=== PATIENT | female | born 1945 | race Caucasian/White ===

== ENCOUNTER → 2016-03-28 | Outpatient (CLI) | payer MEDICARE, OTHER ==
[2016-03-29 09:28] LABS: HEMATOCRIT 37.2 % (36.0-47.0); HEMOGLOBIN 12.6 g/dL (12.0-15.5); HGB HCT DIFFERENCE 0.6; MEAN CORPUSCULAR VOLUME 91 fl (80-97); RED BLOOD COUNT 4.08 10^6/uL (3.72-5.28); RED CELL DISTRIBUTION WIDTH 14.2 % (11.5-14.0); WHITE BLOOD COUNT 5.2 10^3/uL (4.0-10.5)
[2016-03-29 09:51] LABS: ANION GAP 13 (5-19); BLOOD UREA NITROGEN 19 mg/dL (7-20); CALCIUM 9.7 mg/dL (8.4-10.2); CARBON DIOXIDE 25 mmol/L (22-30); CHLORIDE 108 mmol/L (98-107); CREATININE RESULT 0.55 mg/dL (0.52-1.25); GLUCOSE 99 mg/dL (75-110); POTASSIUM 4.2 mmol/L (3.6-5.0); SODIUM 146.1 mmol/L (137-145)
== END ==
LOC: OD 08:48
PROVIDERS: ATTEND Internal Medicine Cardiovascular Disease
DX: Z79.899 Other long term (current) drug therapy (principal)
CPT/HCPCS: 36415; 80048; 85027

== ENCOUNTER → 2016-05-04 | Outpatient (CLI) | payer MEDICARE, OTHER ==
[2016-05-04 09:01] LABS: HEMATOCRIT 37.5 % (36.0-47.0); HEMOGLOBIN 12.9 g/dL (12.0-15.5); HGB HCT DIFFERENCE 1.2; MEAN CORPUSCULAR HEMOGLOBIN 31.1 pg (27.0-33.4); MEAN CORPUSCULAR HGB CONC 34.3 g/dL (32.0-36.0); MEAN CORPUSCULAR VOLUME 91 fl (80-97); RED BLOOD COUNT 4.14 10^6/uL (3.72-5.28); WHITE BLOOD COUNT 4.6 10^3/uL (4.0-10.5)
[2016-05-04 09:20] LABS: ALANINE AMINOTRANSFERASE 65 U/L (9-52); ALBUMIN 4.5 g/dL (3.5-5.0); ALKALINE PHOSPHATASE 85 U/L (38-126); ASPARTATE AMINO TRANSFERASE 43 U/L (14-36); BILIRUBIN,DIRECT 0.3 mg/dL (0.0-0.4); BILIRUBIN,TOTAL 0.6 mg/dL (0.2-1.3); CHOLESTEROL 220.19 mg/dL (0-200); Direct HDL 57 mg/dL (>40); MAGNESIUM 1.9 mg/dL (1.6-2.3); TOTAL PROTEIN 7.2 g/dL (6.3-8.2); TRIGLYCERIDES 195 mg/dL (<150)
[2016-05-04 09:32] LABS: DIRECT LDL 121 mg/dL (<100)
== END ==
LOC: OD 08:02
PROVIDERS: ATTEND Internal Medicine Cardiovascular Disease
DX: E78.2 Mixed hyperlipidemia (principal); R00.2 Palpitations; R94.5 Abnormal results of liver function studies
CPT/HCPCS: 36415; 80061; 80076; 83735; 84443; 85027

== ENCOUNTER → 2016-07-06 | Outpatient (CLI) | payer MEDICARE, OTHER ==
[2016-07-06 08:29] LABS: ALANINE AMINOTRANSFERASE 53 U/L (9-52); ALBUMIN 4.2 g/dL (3.5-5.0); ALKALINE PHOSPHATASE 93 U/L (38-126); ASPARTATE AMINO TRANSFERASE 27 U/L (14-36); BILIRUBIN,DIRECT 0.2 mg/dL (0.0-0.4); BILIRUBIN,TOTAL 0.4 mg/dL (0.2-1.3); CHOLESTEROL 223.15 mg/dL (0-200); Direct HDL 55 mg/dL (>40); TOTAL PROTEIN 6.6 g/dL (6.3-8.2); TRIGLYCERIDES 157 mg/dL (<150)
[2016-07-06 08:40] LABS: DIRECT LDL 103 mg/dL (<100)
[2016-07-06 08:44] LABS: VLDL CHOLESTEROL 31.4 mg/dL (10-31)
== END ==
LOC: OD 07:07
PROVIDERS: ATTEND Internal Medicine Cardiovascular Disease
DX: E78.2 Mixed hyperlipidemia (principal); R94.5 Abnormal results of liver function studies
CPT/HCPCS: 36415; 80061; 80076

== ENCOUNTER → 2016-08-02 | Outpatient (CLI) | payer MEDICARE, OTHER ==
--- NOTE | 2016-08-02 15:12 | RADIOLOGY REPORT (SQ) ---
EXAM DESCRIPTION: CAROTID DOPPLER COMPLETED DATE/TIME: 08/02/2016 2:05 pm REASON FOR STUDY: STENOSIS I65.29 OCCLUSION AND STENOSIS OF UNSPECIFIED CAROTID ARTERY COMPARISON: None. TECHNIQUE: Grayscale ultrasound, Doppler velocity and spectra, and color Doppler images acquired of the extra-cranial carotid and vertebral arteries. Images stored on PACS. LIMITATIONS: None. FINDINGS: RIGHT CAROTID CCA Velocities: Within normal limits. ICA Velocities Peak systolic 0.65 m/s. End diastolic 0.18 m/s. Proximal ICA/CCA peak systolic ratio 1.2. Spectra normal. No significant plaque. LEFT CAROTID CCA Velocities: Within normal limits. ICA Velocities Peak systolic 0.84 m/s. End diastolic 0.26 m/s. Proximal ICA/CCA peak systolic ratio 2.1. Spectra normal. No significant plaque. VERTEBRAL ARTERIES: Antegrade flow. Normal waveforms. SUBCLAVIAN ARTERIES: Not evaluated OTHER: No other significant finding. IMPRESSION: NO HEMODYNAMICALLY SIGNIFICANT STENOSIS. COMMENT: Quality ID #[id number]: Velocity criteria are extrapolated from the diameter data as defined by t he Society of Radiologists in Ultrasound Consensus Conference. Radiology 2003: 229; 340-346. TECHNICAL DOCUMENTATION: JOB ID: [id number] [employer]- All Rights Reserved
== END ==
LOC: SP 12:28
PROVIDERS: ATTEND Family Medicine
DX: I65.29 Occlusion and stenosis of unspecified carotid artery (principal)
CPT/HCPCS: 93880

== ENCOUNTER → 2016-08-30 | Outpatient (CLI) | payer MEDICARE, OTHER ==
[2016-08-30 09:51] LABS: HEMATOCRIT 37.9 % (36.0-47.0); HEMOGLOBIN 12.5 g/dL (12.0-15.5); HGB HCT DIFFERENCE -0.4; MEAN CORPUSCULAR HEMOGLOBIN 30.3 pg (27.0-33.4); MEAN CORPUSCULAR HGB CONC 32.9 g/dL (32.0-36.0); MEAN CORPUSCULAR VOLUME 92 fl (80-97); RED BLOOD COUNT 4.11 10^6/uL (3.72-5.28); WHITE BLOOD COUNT 4.3 10^3/uL (4.0-10.5)
[2016-08-30 10:05] LABS: ALANINE AMINOTRANSFERASE 42 U/L (9-52); ALBUMIN 4.4 g/dL (3.5-5.0); ALKALINE PHOSPHATASE 68 U/L (38-126); ASPARTATE AMINO TRANSFERASE 21 U/L (14-36); BILIRUBIN,DIRECT 0.3 mg/dL (0.0-0.4); BILIRUBIN,TOTAL 0.5 mg/dL (0.2-1.3); CHOLESTEROL 171.25 mg/dL (0-200); Direct HDL 54 mg/dL (>40); TOTAL PROTEIN 6.7 g/dL (6.3-8.2); TRIGLYCERIDES 112 mg/dL (<150)
[2016-08-30 10:16] LABS: DIRECT LDL 82 mg/dL (<100)
== END ==
LOC: OD 09:06
PROVIDERS: ATTEND Internal Medicine Cardiovascular Disease
DX: R94.5 Abnormal results of liver function studies (principal); E78.2 Mixed hyperlipidemia; D64.9 Anemia, unspecified
CPT/HCPCS: 36415; 80061; 80076; 85027

== ENCOUNTER 2016-09-08 02:49 | Observation (INO) | payer MEDICARE, OTHER ==
[~2016-09-08 02:49] MED LIST: ASPIRIN 81 MG TABLET, CHEWABLE PO ONE
--- NOTE | 2016-09-08 03:18 | RADIOLOGY REPORT (SQ) ---
EXAM DESCRIPTION: CHEST SINGLE VIEW COMPLETED DATE/TIME: 09/08/2016 3:10 am REASON FOR STUDY: chest pain COMPARISON: 11.19.15 EXAM PARAMETERS: NUMBER OF VIEWS: One view. TECHNIQUE: Single frontal radiographic view of the chest acquired. RADIATION DOSE: NA LIMITATIONS: None. FINDINGS: LUNGS AND PLEURA: No opacities, masses or pneumothorax. No pleural effusion. MEDIASTINUM AND HILAR STRUCTURES: No masses. Contour normal. HEART AND VASCULAR STRUCTURES: Heart normal in size. Normal vasculature. BONES: No acute findings. HARDWARE: None in the chest. OTHER: No other significant finding. IMPRESSION: NO ACUTE RADIOGRAPHIC FINDING IN THE CHEST. TECHNICAL DOCUMENTATION: JOB ID: [id number]
[2016-09-08] MEDS ORDERED: MAG HYDROX/AL HYDROX/SIMETH SUSP 30 ML UDCUP PO ONE (03:19)
[2016-09-08] MEDS ORDERED: METOCLOPRAMIDE HCL ORAL SOLN 10 MG/10 ML UDCUP PO ONE (03:19)
[2016-09-08] MEDS ORDERED: LIDOCAINE 2% VISCOUS SOLN 20 ML UDCUP PO ONE (03:19)
[2016-09-08 03:40] LABS: CREATINE KINASE MB 2.34 ng/mL (<4.55)
[2016-09-08 03:43] LABS: ALANINE AMINOTRANSFERASE 119 U/L (9-52); ALBUMIN 4.4 g/dL (3.5-5.0); ALKALINE PHOSPHATASE 80 U/L (38-126); ANION GAP 13 (5-19); ASPARTATE AMINO TRANSFERASE 249 U/L (14-36); BILIRUBIN,DIRECT 0.4 mg/dL (0.0-0.4); BILIRUBIN,TOTAL 0.6 mg/dL (0.2-1.3); BLOOD UREA NITROGEN 14 mg/dL (7-20); CALCIUM 9.3 mg/dL (8.4-10.2); CARBON DIOXIDE 27 mmol/L (22-30); CHLORIDE 106 mmol/L (98-107); CREATINE KINASE 131 U/L (30-135); CREATININE RESULT 0.63 mg/dL (0.52-1.25); GLUCOSE 120 mg/dL (75-110); POTASSIUM 3.2 mmol/L (3.6-5.0); SODIUM 145.7 mmol/L (137-145); TOTAL PROTEIN 7.3 g/dL (6.3-8.2); TROPONIN I < 0.012 ng/mL
[2016-09-08 03:48] LABS: HEMATOCRIT 35.1 % (36.0-47.0); HGB HCT DIFFERENCE 0.9; MEAN CORPUSCULAR HEMOGLOBIN 32.1 pg (27.0-33.4); MEAN CORPUSCULAR HGB CONC 34.3 g/dL (32.0-36.0); MEAN CORPUSCULAR VOLUME 94 fl (80-97); RED BLOOD COUNT 3.75 10^6/uL (3.72-5.28); RED CELL DISTRIBUTION WIDTH 13.8 % (11.5-14.0); WHITE BLOOD COUNT 6.5 10^3/uL (4.0-10.5)
[2016-09-08 03:51] LABS: BASOPHILS % (MANUAL) 0 % (0-2); EOSINOPHILS % (MANUAL) 4 % (0-6); LYMPHOCYTES % (MANUAL) 38 % (13-45); TOTAL CELLS COUNTED 100
[2016-09-08 03:52] LABS: TOXIC GRANULATION SLIGHT
[2016-09-08 03:53] LABS: BURR CELLS SLIGHT; OVALOCYTES SLIGHT; POIKILOCYTOSIS SLIGHT; SCHISTOCYTES SLIGHT
[2016-09-08] MEDS ORDERED: NITROGLYCERIN 0.4 MG/TAB 25 TAB/BOTTLE SL PRN ×2 (04:31→13:47)
--- NOTE | 2016-09-08 04:38 | ER Document Report ---
ED General - General Chief Complaint: Chest Pain Stated Complaint: CHEST PAIN Time Seen by Provider: 09/08/16 03:14 Mode of Arrival: Medic Information source: Patient Notes: 71-year-old female history of hypertension presents with complaints of epigastric abdominal pain pressure sensation associated with shortness of breath and chest pain. Patient denies any fevers or chills Patient notes pain started about 2 hours prior to arrival she went to sleep and the pain woke her up TRAVEL OUTSIDE OF THE [place] IN LAST 30 DAYS: No - HPI Onset: Just prior to arrival Onset/Duration: Sudden Quality of pain: Pressure Severity: Mild Pain Level: 1 Associated symptoms: Chest pain, Shortness of breath Exacerbated by: Denies Relieved by: Denies Similar symptoms previously: No Recently seen / treated by doctor: No - Related Data Allergies/Adverse Reactions: codeine [Codeine] Allergy (Intermediate, Verified 11/19/15 05:14) CP amoxicillin trihydrate [From Augmentin] Allergy (Verified 11/19/15 05:14) naproxen Allergy (Verified 11/19/15 05:14) Potassium Clavulanate * [From Augmentin] Allergy (Verified 11/19/15 05:14) Past Medical History - Social History Smoking Status: Never Smoker Cigarette use (# per day): No Chew tobacco use (# tins/day): No Smoking Education Provided: No Family History: Reviewed & Not Pertinent - Past Medical History Cardiac Medical History: Reports: Hx Hypercholesterolemia, Hx Hypertension Denies: Hx Atrial Fibrillation, Hx Congestive Heart Failure, Hx Coronary Artery Disease, Hx Heart Attack, Hx Peripheral Vascular Disease, Hx Pulmonary Embolism, Hx Heart Murmur Pulmonary Medical History: Reports: Hx Asthma, Hx Pneumonia Denies: Hx Bronchitis, Hx COPD, Hx Respiratory Failure, Hx Sleep Apnea, Hx Tuberculosis Neurological Medical History: Denies: Hx Cerebrovascular Accident, Hx Seizures Endocrine Medical History: Denies: Hx Graves' Disease, Hx Hyperthyroidism, Hx Hypothyroidism Renal/ Medical History: Denies: Hx End Stage Renal Disease, Hx Kidney Stones, Hx Ovarian Cysts, Hx Peritoneal Dialysis, Hx Pelvic Inflammatory Disease Malignancy Medical History: Denies: Hx Breast Cancer, Hx Cervical Cancer, Hx Leukemia, Hx Lung Cancer, Hx Ovarian Cancer GI Medical History: Reports: Hx Gastroesophageal Reflux Disease, Hx Ulcer. Denies: Hx Crohn's Disease, Hx Hiatal Hernia, Hx Irritable Bowel, Hx Liver Failure Musculoskeltal Medical History: Denies Hx Arthritis, Denies Hx Fibromyalgia, Denies Hx Multiple Sclerosis, Denies Hx Muscular Dystrophy Psychiatric Medical History: Denies: Hx Dementia Traumatic Medical History: Denies: Hx Fractures Infectious Medical History: Denies: Hx HIV Past Surgical History: Reports: Hx Abdominal Surgery - benign colon cyst with 4 inch resection, Hx Appendectomy, Hx Cholecystectomy, Hx Hysterectomy, Hx Tonsillectomy, Hx Tubal Ligation. Denies: Hx Bowel Surgery, Hx Section , Hx Colostomy, Hx Coronary Artery Bypass Graft, Hx Gastric Bypass Surgery, Hx Herniorrhaphy, Hx Mastectomy, Hx Pacemaker - Immunizations Hx Diphtheria, Pertussis, Tetanus Vaccination: No Hx Pneumococcal Vaccination: 11/24/11 Review of Systems - Review of Systems Notes: REVIEW OF SYSTEMS: CONSTITUTIONAL : Denies fever, chills, or sweats. Denies recent illness. EENT: Denies eye, ear, throat, or mouth pain or symptoms. Denies nasal or sinus congestion or discharge. Denies throat, tongue, or mouth swelling or difficulty swallowing. CARDIOVASCULAR: admits ot chest pain RESPIRATORY: Denies cough, cold, or chest congestion. Denies shortness of breath, difficulty breathing, or wheezing. GASTROINTESTINAL: admits to epigastric abd pain GENITOURINARY: Denies difficulty urinating, painful urination, burning, frequency, blood in urine, or discharge. FEMALE GENITOURINARY: Denies vaginal bleeding, heavy or abnormal periods, irregular periods. Denies vaginal discharge or odor. MUSCULOSKELETAL: Denies back or neck pain or stiffness. Denies joint pain or swelling. SKIN: Denies rash, lesions or sores. HEMATOLOGIC : Denies easy bruising or bleeding. LYMPHATIC: Denies swollen, enlarged glands. NEUROLOGICAL: Denies confusion or altered mental status. Denies passing out or loss of consciousness. Denies dizziness or lightheadedness. Denies headache. Denies weakness or paralysis or loss of use of either side. Denies problems with gait or speech. Denies sensory loss, numbness, or tingling. Denies seizures. PSYCHIATRIC: Denies anxiety or stress. Denies depression, suicidal ideation, or homicidal ideation. ALL OTHER SYSTEMS REVIEWED AND NEGATIVE. PHYSICAL EXAMINATION: GENERAL: Well-appearing, well-nourished and in no acute distress. HEAD: Atraumatic, normocephalic. EYES: Pupils equal round and reactive to light, extraocular movements intact, conjunctiva are normal. ENT: Nares patent, oropharynx clear without exudates. Moist mucous membranes. NECK: Normal range of motion, supple without lymphadenopathy LUNGS: Breath sounds clear to auscultation bilaterally and equal. No wheezes rales or rhonchi. HEART: Regular rate and rhythm without murmurs ABDOMEN: Soft,mildly tender in the epigastric region Female : deferred Musculoskeletal: Normal range of motion, no pitting or edema. No cyanosis. NEUROLOGICAL: Cranial nerves grossly intact. Normal speech, normal gait. Normal sensory, motor exams PSYCH: Normal mood, normal affect. SKIN: Warm, Dry, normal turgor, no rashes or lesions noted. Dictation was performed using [employer] voice recognition software Physical Exam - Vital signs Vitals: Temp Resp Pulse Ox 97.6 F 14 98 09/08/16 02:57 09/08/16 02:57 09/08/16 02:57 Course - Re-evaluation Re-evalutation: 09/08/16 04:38 Patient had no relief of pain with GI cocktail, ultrasound pending elevated liver enzymes noted patient will be admitted for ACS rule out - Vital Signs Vital signs: Temp Pulse Resp BP Pulse Ox 97.6 F 15 162/72 H 100 09/08/16 02:57 09/08/16 03:35 09/08/16 03:35 09/08/16 03:35 - Laboratory Result Diagrams: 09/08/16 02:56 09/08/16 02:56 Laboratory results interpreted by me: 09/08/16 09/08/16 02:56 02:56 Hct 35.1 L Monocytes % (Manual) 1 L Sodium 145.7 H Potassium 3.2 L Glucose 120 H AST 249 H ALT 119 H - Diagnostic Test Radiology reviewed: Image reviewed, Reports reviewed - EKG Interpretation by Me EKG shows normal: Sinus rhythm, [place], Intervals, QRS Complexes When compared to previous EKG there are: No significant change Discharge - Discharge Clinical Impression: Epigastric pain, Elevated liver enzymes Chest pain Qualifiers: Chest pain type: unspecified Qualified Code(s): R07.9 - Chest pain, unspecified Condition: Stable Disposition: ADMITTED OBSERVATION Admitting Provider: [facility] Admitted: Telemetry
[2016-09-08] MEDS ORDERED: NORMAL SALINE 1000 ML 1,000 ML IV PRN (06:17)
[2016-09-08] MEDS ORDERED: ACETAMINOPHEN 325 MG TABLET PO PRN (06:17)
--- NOTE | 2016-09-08 07:09 | RADIOLOGY REPORT (SQ) ---
EXAM DESCRIPTION: U/S ABDOMEN LIMITED W/O DOP COMPLETED DATE/TIME: 09/08/2016 6:44 am REASON FOR STUDY: epigastric pain R07.9 CHEST PAIN, UNSPECIFIED R10.9 UNSPECIFIED ABDOMINAL PAIN COMPARISON: None. TECHNIQUE: Dynamic and static grayscale images acquired of the abdomen and recorded on PACS. Additio nal selected color Doppler and spectral images recorded. LIMITATIONS: None. FINDINGS: PANCREAS: No masses. Pancreatic duct diameter measures 0.3 cm, chronic compared to the wi th prior CT from November 2011. LIVER: 2.0 cm hypoechoic right hepatic lesion, likely benign due to a hepatic cyst or hemangioma as c orrelated with prior CT, 11/15/2011 an without suspicious interval change. LIVER VASCULATURE: Normal directional flow of the main portal vein and hepatic veins. GALLBLADDER: Surgically absent. ULTRASOUND-DETECTED HENRY'S SIGN: Negative. INTRAHEPATIC DUCTS AND COMMON DUCT: 1.3 cm diameter CBD and intrahepatic ducts normal caliber. No dominic ling defects. INFERIOR VENA CAVA: Normal flow. AORTA: Partially obscured, possible abdominal aortic aneurysm measures 3.5 x 3.3 cm, new compared wit h prior available CT from November 2011. RIGHT KIDNEY: Normal size. Normal echogenicity. No solid or suspicious masses. No hydronephrosis. No calcifications. PERITONEAL AND RIGHT PLEURAL SPACE: No ascites or effusions. OTHER: No other significant findings. IMPRESSION: 1. Possible 3.5 cm abdominal aortic aneurysm. 2. Otherwise, stable including 1.3 cm d iameter common duct dilation, with prior cholecystectomy. TECHNICAL DOCUMENTATION: JOB ID: [id number] [employer]- All Rights Reserved
[2016-09-08] MEDS ORDERED: POTASSIUM CHLORIDE 10 MEQ TABLET.SA PO ONE (07:52)
--- NOTE | 2016-09-08 08:57 | PDOC H&P ---
History of Present Illness Admission Date/PCP: 09/08/16 06:17 FALGUNI PORTILLO MD Patient complains of: Chest pain History of Present Illness: FAITH METZGER is a 71 year old female There is a 71-year-old female with a history of the hypertensions and hyperlipidemia and other multiple medical problem came to the emergency department with a complaint for chest pain started last nightWith the heaviness in the chest and patients for some diaphoretic in patients tried to take some aspirin and weight but still the pain is not getting relief in patients call the EMSAnd brought to the emergency department and the patient was given nitroglycerin and according to the patient's currently patient's chest pain-free . pt see a Dr. Couch Since last couple of months and patient have a stress test was done and according to the patient was all stable and Dr. couch on aspirin In the initial ER workup patient's LFT was elevated was normal last monthAnd patient ultrasound of the abdomen was done which is negative for any acute finding except patient have a some abdominal aortic aneurysm which is a 3.5 cm size but patient's currently denied any abdominal pain Patient's currently started the Crestor by Dr. couch and I think they may contribute to elevated LFT which patient have a same problem when patient was on Zocor in the past and increase the LFT and reduce the dose of the Zocor Past Medical History Cardiac Medical History: Reports: Coronary Artery Disease, Hyperlipidema, Hypertension Denies: Atrial Fibrillation, Congestive Heart Failure, Myocardial Infarction , Peripheral Vascular Disease, Pulmonary Embolism, Heart Murmur Pulmonary Medical History: Reports: Asthma, Pneumonia Denies: Bronchitis, Chronic Obstructive Pulmonary Disease (COPD), Respiratory Failure, Sleep Apnea, Tuberculosis Neurological Medical History: Denies: Seizures Endocrine Medical History: Denies: Hyperthyroidism, Hypothyroidism Renal/ Medical History: Denies: End Stage Renal Disease Malignancy Medical History: Denies: Breast Cancer, Cervical Cancer, Leukemia, Lung Cancer, Ovarian Cancer GI Medical History: Reports: Gastroesophageal Reflux Disease Denies: Crohn's Disease, Hiatal Hernia Musculoskeltal Medical History: Denies: Arthritis, Fibromyalgia Psychiatric Medical History: Reports: General Anxiety Disorder Denies: Dementia Hematology: Reports: Anemia Denies: Hemophilia, Sickle Cell Disease Infectious Medical History: Denies: HIV Past Surgical History Past Surgical History: Reports: Appendectomy, Cholecystectomy, Hysterectomy, Tonsillectomy, Tubal Ligation Denies: Amputation, Section, Colostomy, Coronary Artery Bypass Graft , Gastric Bypass Surgery, Herniorrhaphy, Mastectomy, Pacemaker Social History Lives with: Family Smoking Status: Never Smoker Hx Recreational Drug Use: No Hx Prescription Drug Abuse: No Family History Family History: Reviewed & Not Pertinent Parental Family History Reviewed: Yes Children Family History Reviewed: Yes Sibling(s) Family History Reviewed.: Yes Medication/Allergy Home Medications: Ascorbic Acid [Vitamin C 500 mg Tablet] 500 mg PO DAILY 09/08/16 Calcium Carbonate/Vitamin D3 [Calcium 500-Vit D3 600 Caplet] 1 each PO DAILY Esomeprazole Magnesium [Nexium] 40 mg PO DAILY 09/08/16 Glipizide [Glipizide ER] 2.5 mg PO DAILY 09/08/16 Glucosamine Sulfate 2Kcl [Glucosamine] 1,500 mg PO Q12 09/08/16 Ibandronate Sodium [Boniva] 150 mg PO Q30D 09/08/16 Multivitamin [Multivitamins] 1 each PO DAILY 09/08/16 Ropinirole HCl [Requip] 1 mg PO DAILY 09/08/16 Simvastatin 40 mg PO DAILY 09/08/16 Telmisartan [Micardis 40 mg Tablet] 40 mg PO DAILY 09/08/16 Allergies/Adverse Reactions: codeine [Codeine] Allergy (Intermediate, Verified 11/19/15 05:14) CP amoxicillin trihydrate [From Augmentin] Allergy (Verified 11/19/15 05:14) naproxen Allergy (Verified 11/19/15 05:14) Potassium Clavulanate * [From Augmentin] Allergy (Verified 11/19/15 05:14) Review of Systems Constitutional: ABSENT: chills, fever(s), headache(s), weight gain, weight loss Eyes: ABSENT: visual disturbances Ears: ABSENT: hearing changes Cardiovascular: PRESENT: chest pain. ABSENT: dyspnea on exertion, edema, orthropnea, palpitations Respiratory: ABSENT: cough, hemoptysis Gastrointestinal: ABSENT: abdominal pain, constipation, diarrhea, hematemesis, hematochezia, nausea, vomiting Genitourinary: ABSENT: dysuria, hematuria Musculoskeletal: ABSENT: joint swelling Integumentary: ABSENT: rash, wounds Neurological: ABSENT: abnormal gait, abnormal speech, confusion, dizziness, focal weakness, syncope Psychiatric: ABSENT: anxiety, depression, homidical ideation, suicidal ideation Endocrine: ABSENT: cold intolerance, heat intolerance, menstrual abnormalities, polydipsia, polyuria Hematologic/Lymphatic: ABSENT: easy bleeding, easy bruising, lymphadenopathy Physical Exam Vital Signs: Temp Pulse Resp BP Pulse Ox 98.2 F 90 15 152/78 H 100 09/08/16 06:21 09/08/16 06:21 09/08/16 08:02 09/08/16 08:02 09/08/16 08:02 General appearance: PRESENT: no acute distress, well-developed, well-nourished Head exam: PRESENT: atraumatic, normocephalic Eye exam: PRESENT: conjunctiva pink, EOMI, PERRLA. ABSENT: scleral icterus Ear exam: PRESENT: normal external ear exam Mouth exam: PRESENT: moist, tongue midline Neck exam: PRESENT: full ROM. ABSENT: carotid bruit, JVD, lymphadenopathy, thyromegaly Respiratory exam: PRESENT: clear to auscultation priyanka Cardiovascular exam: PRESENT: RRR. ABSENT: diastolic murmur, rubs, systolic murmur Pulses: PRESENT: normal dorsalis pedis pul, +2 pedal pulses bilateral Vascular exam: PRESENT: normal capillary refill GI/Abdominal exam: PRESENT: normal bowel sounds, soft. ABSENT: distended, guarding, mass, organolmegaly, rebound, tenderness Rectal exam: PRESENT: deferred Neurological exam: PRESENT: alert, awake, oriented to person, oriented to place , oriented to time, oriented to situation, CN II-XII grossly intact. ABSENT: motor sensory deficit Psychiatric exam: PRESENT: appropriate affect, normal mood. ABSENT: homicidal ideation, suicidal ideation Skin exam: PRESENT: dry, intact, warm. ABSENT: cyanosis, rash Results Impressions: Chest X-Ray 09/08/16 02:49 IMPRESSION: NO ACUTE RADIOGRAPHIC FINDING IN THE CHEST. Abdomen Ultrasound 09/08/16 04:34 IMPRESSION: 1. Possible 3.5 cm abdominal aortic aneurysm. 2. Otherwise, stable including 1.3 cm diameter common duct dilation, with prior cholecystectomy. Assessment & Plan - Diagnosis (1) Chest pain Qualifiers: Chest pain type: unspecified Qualified Code(s): R07.9 - Chest pain, unspecified Is this a current diagnosis for this admission?: YesPlan: Will rule out the acute coronary syndrome and rule out other etiology and consult cardiology for further evaluations while patient recently have any stress test done (2) Abdominal aortic aneurysm Qualifiers: Presence of rupture: without rupture Qualified Code(s): I71.4 - Abdominal aortic aneurysm, without rupture Is this a current diagnosis for this admission?: YesPlan: Currently all stable and likely causing any issue at this point needs to further follow-up as outpatients to vascular surgery (3) Hypertension Qualifiers: Hypertension type: essential hypertension Qualified Code(s): I10 - Essential (primary) hypertension Is this a current diagnosis for this admission?: YesPlan: Continues to current medication (4) Hyperlipidemia Qualifiers: Hyperlipidemia type: unspecified Qualified Code(s): E78.5 - Hyperlipidemia, unspecified Is this a current diagnosis for this admission?: YesPlan: Patient is currently on Crestor (5) Coronary artery disease Qualifiers: Coronary Disease-Associated Artery/Lesion type: unspecified vessel or lesion type Is this a current diagnosis for this admission?: YesPlan: Follow with the cardiology (6) Anxiety disorder Qualifiers: Anxiety disorder type: unspecified anxiety disorder Qualified Code(s ): F41.9 - Anxiety disorder, unspecified Is this a current diagnosis for this admission?: YesPlan: Currently all stable (7) Elevated liver enzymes Is this a current diagnosis for this admission?: YesPlan: Most likely related to the statin (8) Epigastric abdominal pain Is this a current diagnosis for this admission?: YesPlan: Possible underlying gastritis will get the CT abdomen and pelvis - Time Time Spent: 30 to 50 Minutes Medications reviewed and adjusted accordingly: Yes Anticipated discharge: Home Within: Other - Inpatient Certification Medical Necessity: Need Close Monitoring Due to Risk of Patient Decompensation, Need For IV Fluids 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 His cast with the patient and the daughter in the emergency department and discuss about the all the test results and the follow-up plan
[2016-09-08] MEDS ORDERED: INSULIN LISPRO 100 UNIT/ML 3 ML VIAL SUBCUT PRN (08:59)
[2016-09-08] MEDS ORDERED: GLUCAGON,HUMAN RECOMB 1 MG INJ IM PRN (08:59)
[2016-09-08] MEDS ORDERED: DEXTROSE 40% GEL 15 GM TUBE PO PRN ×2 (08:59)
[2016-09-08] MEDS ORDERED: DEXTROSE 50%-WATER 25 GM/50 ML DISP.SYRIN IV PRN ×2 (08:59)
--- NOTE | 2016-09-08 09:03 | RADIOLOGY REPORT (SQ) ---
EXAM DESCRIPTION: CTA CHEST COMPLETED DATE/TIME: 09/08/2016 8:49 am REASON FOR STUDY: chest pain R07.9 CHEST PAIN, UNSPECIFIED R10.9 UNSPECIFIED ABDOMINAL PAIN COMPARISON: None. TECHNIQUE: CT scan of the chest performed using helical scanning technique with dynamic intravenous contrast injection. Images reviewed with lung, soft tissue and bone windows. Reconstructed coronal and sagittal MPR images reviewed. Additional 3 dimensional post-processing performed to develop Maximal Intensity Projection images (VT P). All images stored on PACS. All CT scanners at this facility use dose modulation, iterative reconstruction, and/or weight based d osing when appropriate to reduce radiation dose to as low as reasonably achievable (ALARA). [facility]: Dose Right [facility]: CareDose [facility]: Dose Right [facility]: Teradose 4D [facility]: Ziftit CONTRAST TYPE AND DOSE: contrast/concentration: Isovue 370.00 mg/ml; Total Contrast Delivered: 62.0 ml; Total Saline Delivered: 100.1 ml RENAL FUNCTION: Creatinine 0.6 RADIATION DOSE: Up-to-date CT equipment and radiation dose reduction techniques were employed. CTDIv ol: 18.2 - 32.8 mGy. DLP: 3451 mGy-cm. . LIMITATIONS: None. FINDINGS: LUNGS AND PLEURA: No masses, infiltrates, pneumothorax. No pleural effusions, calcificati ons. AORTA AND GREAT VESSELS: No aneurysm or dissection. HEART: No pericardial effusion. PULMONARY ARTERIES: No emboli visualized in the main pulmonary arteries or the segmental branches. HILAR AND MEDIASTINAL STRUCTURES: No identified masses or abnormal nodes. HARDWARE: None in the chest. UPPER ABDOMEN: See separate report of the CT of the abdomen. THYROID AND OTHER SOFT TISSUES: No masses. No adenopathy. BONES: No acute or significant finding. 3D MIPS: Confirm above findings. OTHER: No other significant finding. IMPRESSION: No evidence of pulmonary embolus. TECHNICAL DOCUMENTATION: JOB ID: [id number] Quality ID # [id number]: Final reports with documentation of one or more dose reduction techniques (e.g., Au tomated exposure control, adjustment of the mA and/or kV according to patient size, use of iterative reconstruction technique) 2010 [employer]- All Rights Reserved
--- NOTE | 2016-09-08 09:18 | RADIOLOGY REPORT (SQ) ---
EXAM DESCRIPTION: CT ABD/PELVIS WITH IV ONLY COMPLETED DATE/TIME: 09/08/2016 8:49 am REASON FOR STUDY: abd pain R07.9 CHEST PAIN, UNSPECIFIED R10.9 UNSPECIFIED ABDOMINAL PAIN COMPARISON: 11/15/2011 TECHNIQUE: CT scan of the abdomen and pelvis performed using helical scanning technique with dynamic intravenous contrast injection. No oral contrast. Images reviewed with lung, soft tissue, and bone windows. Reconstructed coronal and sagittal MPR images reviewed. Delayed images for evaluation of the urinary system also acquired. All images stored on PACS. All CT scanners at this facility use dose modulation, iterative reconstruction, and/or weight based d osing when appropriate to reduce radiation dose to as low as reasonably achievable (ALARA). [facility]: Dose Right [facility]: CareDose [facility]: Dose Right [facility]: Teradose 4D [facility]: Smart Fixit Express CONTRAST TYPE AND DOSE: See separate chest CT of the same date. RENAL FUNCTION: See chest CT report of the same date. RADIATION DOSE: . LIMITATIONS: None. FINDINGS: LOWER CHEST: See separate report of the CT of the chest. LIVER: Benign cyst. Chronic ductal dilatation status post cholecystectomy. SPLEEN: Normal size. No focal lesions. PANCREAS: No masses. No significant calcifications. No adjacent inflammation or peripancreatic fluid collections. Pancreatic duct not dilated. GALLBLADDER: Surgically absent. ADRENAL GLANDS: No significant masses or asymmetry. RIGHT KIDNEY AND URETER: No solid masses. No significant calcifications. No hydronephrosis or hyd roureter. LEFT KIDNEY AND URETER: Cyst upper pole. No solid masses. No significant calcifications. No hydr onephrosis or hydroureter. AORTA AND VESSELS: No aneurysm. No dissection. Renal arteries, SMA, celiac without stenosis. RETROPERITONEUM: No retroperitoneal adenopathy, hemorrhage or masses. BOWEL AND PERITONEAL CAVITY: No masses or inflammatory changes. No free fluid or peritoneal masses. APPENDIX: Surgically absent. PELVIS: No mass. No free fluid. Normal bladder. ABDOMINAL WALL: No masses. No hernias. BONES: No acute findings. OTHER: No other significant finding. IMPRESSION: No acute findings in the abdomen or pelvis. TECHNICAL DOCUMENTATION: JOB ID: [id number] Quality ID # [id number]: Final reports with documentation of one or more dose reduction techniques (e.g., Au tomated exposure control, adjustment of the mA and/or kV according to patient size, use of iterative reconstruction technique) 2010 [employer]- All Rights Reserved
[2016-09-08] MEDS: ENOXAPARIN SODIUM INJ 40 MG/0.4 ML DISP.SYRIN SUBCUT SCH (09:41)
[2016-09-08] MEDS: ASCORBIC ACID 500 MG TABLET PO SCH (09:42)
[2016-09-08] MEDS: LANSOPRAZOLE 30 MG TAB.RAP.DR PO SCH (09:42)
[2016-09-08] MEDS: MULTIVITAMIN TABLET PO SCH (09:43)
[2016-09-08] MEDS: LOSARTAN POTASSIUM 50 MG TABLET PO SCH (09:44)
[2016-09-08] MEDS: CALCIUM CARBONATE 250 MG/VITAMIN D3 125 UNIT TABLET PO SCH (09:45)
[2016-09-08] MEDS ORDERED: CALCIUM CARBONATE PO SCH (10:00)
[2016-09-08] MEDS ORDERED: VITAMIN D3 PO SCH (10:00)
[2016-09-08] MEDS ORDERED: ROPINIROLE HCL 1 MG TABLET PO SCH (10:00)
[2016-09-08] MEDS ORDERED: (PENDING PHARMACY ID) (Ropinirole Hcl [Requip] 1 MG) PO SCH (10:00)
[2016-09-08] MEDS ORDERED: [UNRECOGNIZED DRUG - OTHER] PO SCH (10:00)
[2016-09-08] MEDS ORDERED: GLUCOSAMINE SULFATE 1500 MG PO SCH (10:00)
[2016-09-08] MEDS ORDERED: (PENDING PHARMACY ID) (Telmisartan [Micardis 40 Mg Tablet] 40 MG) PO SCH (10:00)
[2016-09-08] MEDS: GLIPIZIDE XL 2.5 MG TAB.ER.24 PO SCH (11:10)
[2016-09-08 12:02] LABS: CREATINE KINASE MB 1.81 ng/mL (<4.55)
[2016-09-08 12:07] LABS: TROPONIN I < 0.012 ng/mL
--- NOTE | 2016-09-08 17:15 | EKG REPORT ---
SEVERITY:- ABNORMAL ECG - SINUS RHYTHM NONSPECIFIC T ABNORMALITIES, LATERAL LEADS : Confirmed by: Gardenia Joyce MD 08-Sep-2016 17:14:47
[2016-09-08 17:44] LABS: CREATINE KINASE MB 1.73 ng/mL (<4.55)
[2016-09-08 17:45] LABS: TROPONIN I < 0.012 ng/mL
[2016-09-08] MEDS: ROPINIROLE HCL 1 MG TABLET PO SCH (20:03)
[2016-09-08 23:18] LABS: CREATINE KINASE MB 1.09 ng/mL (<4.55)
[2016-09-08 23:22] LABS: TROPONIN I < 0.012 ng/mL
[2016-09-09 06:13] LABS: ABSOLUTE EOSINOPHILS # (AUTO) 0.1 10^3/uL (0.0-0.6); ABSOLUTE LYMPHOCYTES (AUTO) 1.5 10^3/uL (0.5-4.7); ABSOLUTE MONOCYTES (AUTO) 0.2 10^3/uL (0.1-1.4); ABSOLUTE NEUT (AUTO) 1.6 10^3/uL (1.7-8.2); BASOPHILS % (AUTO) 0.2 % (0-2); EOSINOPHILS % (AUTO) 2.9 % (0-6); HEMATOCRIT 33.8 % (36.0-47.0); HEMOGLOBIN 11.6 g/dL (12.0-15.5); LYMPHOCYTES % (AUTO) 43.5 % (13-45); MEAN CORPUSCULAR HEMOGLOBIN 31.5 pg (27.0-33.4); MEAN CORPUSCULAR HGB CONC 34.5 g/dL (32.0-36.0); MEAN CORPUSCULAR VOLUME 91 fl (80-97); MONOCYTES % (AUTO) 6.9 % (3-13); SEGMENTED NEUTROPHILS % (AUTO) 46.5 % (42-78); WHITE BLOOD COUNT 3.5 10^3/uL (4.0-10.5)
[2016-09-09 06:31] LABS: ALANINE AMINOTRANSFERASE 337 U/L (9-52); ALBUMIN 4.1 g/dL (3.5-5.0); ALKALINE PHOSPHATASE 93 U/L (38-126); ANION GAP 11 (5-19); ASPARTATE AMINO TRANSFERASE 204 U/L (14-36); BILIRUBIN,DIRECT 0.3 mg/dL (0.0-0.4); BILIRUBIN,TOTAL 0.4 mg/dL (0.2-1.3); BLOOD UREA NITROGEN 17 mg/dL (7-20); CALCIUM 9.7 mg/dL (8.4-10.2); CARBON DIOXIDE 27 mmol/L (22-30); CHLORIDE 104 mmol/L (98-107); CREATININE RESULT 0.66 mg/dL (0.52-1.25); GLUCOSE 106 mg/dL (75-110); POTASSIUM 4.2 mmol/L (3.6-5.0); SODIUM 141.5 mmol/L (137-145); TOTAL PROTEIN 6.7 g/dL (6.3-8.2)
[2016-09-09] MEDS: LANSOPRAZOLE 30 MG TAB.RAP.DR PO SCH ×2 (08:43→10:05)
[2016-09-09 08:45] LABS: CREATINE KINASE MB 1.29 ng/mL (<4.55)
[2016-09-09 08:50] LABS: TROPONIN I < 0.012 ng/mL
[2016-09-09] MEDS: ENOXAPARIN SODIUM INJ 40 MG/0.4 ML DISP.SYRIN SUBCUT SCH (10:03)
[2016-09-09] MEDS: MULTIVITAMIN TABLET PO SCH (10:04)
[2016-09-09] MEDS: LOSARTAN POTASSIUM 50 MG TABLET PO SCH (10:04)
[2016-09-09] MEDS: CALCIUM CARBONATE 250 MG/VITAMIN D3 125 UNIT TABLET PO SCH (10:04)
[2016-09-09] MEDS: ASCORBIC ACID 500 MG TABLET PO SCH (10:04)
[2016-09-09] MEDS: GLIPIZIDE XL 2.5 MG TAB.ER.24 PO SCH (10:05)
--- NOTE | 2016-09-09 10:49 | PDOC PROGRESS REPORT ---
Subjective Progress Note for:: 09/09/16 Subjective:: Patient is currently doing much better. Patient's denied any chest pain denied any shortness of the breath.Patient also walking the hallway and in no change and denied any other complaints Patient also denied any epigastric pain or no nausea no vomiting Very extensive discussions with the Dr. Couch and he suggest the patient's when he reviewed the chart on [facility] and he does not think it is coming from the cardiac and he think up patients can discharge from the cardiac standpoint if he does not have a no chest painAnd follow outpatient Patient's LFTs definitely elevated and the patient does have a common bile duct dilatations as per discussed with the Dr. Romero he will further evaluate the patient's while the patient LFT was suddenly increased within the last 2 weeks Physical Exam Vital Signs: Temp Pulse Resp BP Pulse Ox 97.6 F 78 19 154/76 H 98 09/09/16 07:24 09/09/16 07:24 09/09/16 07:24 09/09/16 07:24 09/09/16 07:24 Intake & Output 09/08/16 09/09/16 09/10/16 06:59 06:59 06:59 Intake Total 1053 Balance 1053 Weight 72.6 kg General appearance: PRESENT: no acute distress, well-developed, well-nourished Head exam: PRESENT: atraumatic, normocephalic Eye exam: PRESENT: conjunctiva pink, EOMI, PERRLA. ABSENT: scleral icterus Ear exam: PRESENT: normal external ear exam Mouth exam: PRESENT: moist, tongue midline Neck exam: PRESENT: full ROM. ABSENT: carotid bruit, JVD, lymphadenopathy, thyromegaly Respiratory exam: PRESENT: clear to auscultation priyanka Cardiovascular exam: PRESENT: RRR. ABSENT: diastolic murmur, rubs, systolic murmur Pulses: PRESENT: normal dorsalis pedis pul, +2 pedal pulses bilateral Vascular exam: PRESENT: normal capillary refill GI/Abdominal exam: PRESENT: normal bowel sounds, soft. ABSENT: distended, guarding, mass, organolmegaly, rebound, tenderness Rectal exam: PRESENT: deferred Neurological exam: PRESENT: alert, awake, oriented to person, oriented to place , oriented to time, oriented to situation, CN II-XII grossly intact. ABSENT: motor sensory deficit Psychiatric exam: PRESENT: appropriate affect, normal mood. ABSENT: homicidal ideation, suicidal ideation Skin exam: PRESENT: dry, intact, warm. ABSENT: cyanosis, rash Results Laboratory Results: 09/09/16 05:14 09/09/16 05:14 09/09/16 09/09/16 09/09/16 05:14 05:14 08:12 WBC 3.5 L RBC 3.70 L Hgb 11.6 L Hct 33.8 L MCV 91 MCH 31.5 MCHC 34.5 RDW 14.0 Plt Count 128 L Seg Neutrophils % 46.5 Lymphocytes % 43.5 Monocytes % 6.9 Eosinophils % 2.9 Basophils % 0.2 Absolute Neutrophils 1.6 L Absolute Lymphocytes 1.5 Absolute Monocytes 0.2 Absolute Eosinophils 0.1 Absolute Basophils 0.0 Sodium 141.5 Potassium 4.2 Chloride 104 Carbon Dioxide 27 Anion Gap 11 BUN 17 Creatinine 0.66 Est GFR ( Amer) > 60 Est GFR (Non-Af Amer) > 60 Glucose 106 Calcium 9.7 Total Bilirubin 0.4 AST 204 H ALT 337 H Alkaline Phosphatase 93 Total Protein 6.7 Albumin 4.1 Lipase 123.1 09/08/16 09/08/16 09/08/16 17:15 17:15 22:45 Creatine Kinase 97 84 CK-MB (CK-2) 1.73 Troponin I < 0.012 09/08/16 09/09/16 09/09/16 22:45 08:12 08:12 Creatine Kinase 68 CK-MB (CK-2) 1.09 1.29 Troponin I < 0.012 < 0.012 Impressions: Abdomen/Pelvis CT 09/08/16 00:00 IMPRESSION: No acute findings in the abdomen or pelvis. Chest/Abdomen CTA 09/08/16 00:00 IMPRESSION: No evidence of pulmonary embolus. Chest X-Ray 09/08/16 02:49 IMPRESSION: NO ACUTE RADIOGRAPHIC FINDING IN THE CHEST. Abdomen Ultrasound 09/08/16 04:34 IMPRESSION: 1. Possible 3.5 cm abdominal aortic aneurysm. 2. Otherwise, stable including 1.3 cm diameter common duct dilation, with prior cholecystectomy. Assessment & Plan - Diagnosis (1) Chest pain Qualifiers: Chest pain type: unspecified Qualified Code(s): R07.9 - Chest pain, unspecified Is this a current diagnosis for this admission?: YesPlan: All cardiac workup is negative patients with external discussed with the cardiology Dr. Couch and he suggest that the patient's call cardiac workup negative and patient does not have any chest pain patients follow outpatient. He should have a recently a stress test done in his office with so some mild reversible ischemia but he does not think the patient's need any further workup if the patient does not have any chest pain Patient's currently denied any chest pain any shortness of the breath (2) Abdominal aortic aneurysm Qualifiers: Presence of rupture: without rupture Qualified Code(s): I71.4 - Abdominal aortic aneurysm, without rupture Is this a current diagnosis for this admission?: YesPlan: Patient ultrasound so the aneurysm but the CT of the abdomen and pelvis did not show any aneurysm (3) Hypertension Qualifiers: Hypertension type: essential hypertension Qualified Code(s): I10 - Essential (primary) hypertension Is this a current diagnosis for this admission?: YesPlan: Continues to current medication (4) Hyperlipidemia Qualifiers: Hyperlipidemia type: unspecified Qualified Code(s): E78.5 - Hyperlipidemia, unspecified Is this a current diagnosis for this admission?: YesPlan: Patient is currently on Crestor (5) Coronary artery disease Qualifiers: Coronary Disease-Associated Artery/Lesion type: unspecified vessel or lesion type Is this a current diagnosis for this admission?: YesPlan: If the patient have any further chest pain this to be a cardiac cath but otherwise patient does not have any acute coronary syndrome as per discussed with Dr. couch (6) Anxiety disorder Qualifiers: Anxiety disorder type: unspecified anxiety disorder Qualified Code(s ): F41.9 - Anxiety disorder, unspecified Is this a current diagnosis for this admission?: YesPlan: Currently all stable (7) Elevated liver enzymes Is this a current diagnosis for this admission?: YesPlan: With this elevated liver enzyme and a history of the stating side effect but with a slight increase within the last 2 weeks with elevated diameter of the common bile duct were discussed with the GI Dr. Romero any further evaluate the patient's probably need a ERCP while patient have a history of the lap choleTo rule out any retained bile duct stone (8) Epigastric abdominal pain Is this a current diagnosis for this admission?: YesPlan: Will ask the GI for further evaluations (9) Type 2 diabetes mellitus Qualifiers: Diabetes mellitus complication status: with unspecified complications Is this a current diagnosis for this admission?: YesPlan: Continues a sliding scale - Time Time Spent with patient: 15-24 minutes Medications reviewed and adjusted accordingly: Yes Anticipated discharge: Home Within: within 24 hours - Inpatient Certification Medical Necessity: Need Close Monitoring Due to Risk of Patient Decompensation Post Hospital Care: D/C Side Panel Hanger Documentation - Plan Summary Plan Summary: Patient is currently stable with a cardiac standpoint as per discussed with the . khoa Will wait for the GI evaluations
--- NOTE | 2016-09-09 12:12 | EKG REPORT ---
SEVERITY:- NORMAL ECG - SINUS RHYTHM : Confirmed by: Gardenia Joyce MD 09-Sep-2016 12:11:38
--- NOTE | 2016-09-09 12:12 | EKG REPORT ---
SEVERITY:- NORMAL ECG - SINUS RHYTHM : Confirmed by: Gardenia Joyce MD 09-Sep-2016 12:11:34
--- NOTE | 2016-09-09 17:11 | PDOC CONSULTATION ---
Consultation Consult Date: 09/09/16 History of Present Illness Admission Date/PCP: 09/08/16 13:38 FALGUNI PORTILLO MD History of Present Illness: This is a 71-year-old patient was admitted to the emergency room with sudden onset epigastric pain. She went to bed with no problems but woke up during the night with epigastric pain radiating to the back. The pain was associated with nausea and dizziness but no vomiting. The pain lasted for many hours but was gone by and she has been doing reasonably well since admission. She is tolerating a cardiac diet. On admission her transaminases were elevated at AST 249 and ALT 119 with a normal bilirubin and lipase of 123. Her LFTs were normal on 08/30/2016. She had an abdominal ultrasound that showed a dilated. 1.3 cm common bile duct status post cholecystectomy. She has a chronic history of mild dilation of intrahepatic ducts as far back as 2011 on a CAT scan. She had her gallbladder removed in 1978. Past Medical History Cardiac Medical History: Reports: Coronary Artery Disease, Hyperlipidema, Hypertension Denies: Atrial Fibrillation, Congestive Heart Failure, Myocardial Infarction , Peripheral Vascular Disease, Pulmonary Embolism, Heart Murmur Pulmonary Medical History: Reports: Asthma, Pneumonia Denies: Bronchitis, Chronic Obstructive Pulmonary Disease (COPD), Respiratory Failure, Sleep Apnea, Tuberculosis Neurological Medical History: Denies: Seizures Endocrine Medical History: Denies: Hyperthyroidism, Hypothyroidism Renal/ Medical History: Denies: End Stage Renal Disease Malignancy Medical History: Denies: Breast Cancer, Cervical Cancer, Leukemia, Lung Cancer, Ovarian Cancer GI Medical History: Reports: Gastroesophageal Reflux Disease Denies: Crohn's Disease, Hiatal Hernia Musculoskeltal Medical History: Denies: Arthritis, Fibromyalgia Psychiatric Medical History: Reports: Depression, General Anxiety Disorder Denies: Dementia Hematology: Reports: Anemia Denies: Hemophilia, Sickle Cell Disease Infectious Medical History: Denies: HIV Past Surgical History Past Surgical History: Reports: Appendectomy, Cholecystectomy, Hysterectomy, Tonsillectomy, Tubal Ligation Denies: Amputation, Section, Colostomy, Coronary Artery Bypass Graft , Gastric Bypass Surgery, Herniorrhaphy, Mastectomy, Pacemaker Social History Lives with: Family Smoking Status: Never Smoker Frequency of Alcohol Use: None Hx Recreational Drug Use: No Drugs: None Hx Prescription Drug Abuse: No Family History Family History: Reviewed & Not Pertinent Parental Family History Reviewed: No Children Family History Reviewed: NA Sibling(s) Family History Reviewed.: NA Medication/Allergy Home Medications: Ascorbic Acid [Vitamin C 500 mg Tablet] 500 mg PO DAILY 09/08/16 Calcium Carbonate/Vitamin D3 [Calcium 500-Vit D3 600 Caplet] 1 each PO DAILY Esomeprazole Magnesium [Nexium] 40 mg PO DAILY 09/08/16 Glipizide [Glipizide ER] 2.5 mg PO DAILY 09/08/16 Glucosamine Sulfate 2Kcl [Glucosamine] 1,500 mg PO Q12 09/08/16 Ibandronate Sodium [Boniva] 150 mg PO Q30D 09/08/16 Multivitamin [Multivitamins] 1 each PO DAILY 09/08/16 Ropinirole HCl [Requip] 1 mg PO DAILY 09/08/16 Simvastatin 40 mg PO DAILY 09/08/16 Telmisartan [Micardis 40 mg Tablet] 40 mg PO DAILY 09/08/16 Allergies/Adverse Reactions: codeine [Codeine] Allergy (Intermediate, Verified 11/19/15 05:14) CP amoxicillin trihydrate [From Augmentin] Allergy (Verified 11/19/15 05:14) naproxen Allergy (Verified 11/19/15 05:14) Potassium Clavulanate * [From Augmentin] Allergy (Verified 11/19/15 05:14) Review of Systems All systems: reviewed and no additional remarkable complaints except as stated Physical Exam Vital Signs: Temp Pulse Resp BP Pulse Ox 97.9 F 66 18 120/76 100 09/09/16 15:22 09/09/16 15:22 09/09/16 15:22 09/09/16 16:00 09/09/16 15:22 Intake & Output 09/08/16 09/09/16 09/10/16 06:59 06:59 06:59 Intake Total 1053 462 Balance 1053 462 Weight 72.6 kg Exam: General: Patient is alert and looks well. HEENT: There is no pallor or jaundice. PERRLA. Oropharynx normal Respiratory: No chest deformity. No respiratory distress. Chest wall palpitation was unremarkable. Breath sounds were normal Cardiovascular: Heart sounds 1 and 2 normal with no murmurs. Abdominal: Not distended. Soft and nontender. Liver and spleen not palpable. No ascites demonstrated. Bowel sounds active. Rectal examination was deferred. Extremities: No edema Neurological: Alert and oriented x4. Grossly nonfocal. Normal speech Skin: No significant rash Psychological: Normal affect Results Laboratory Results: 09/09/16 05:14 09/09/16 05:14 09/09/16 09/09/16 09/09/16 05:14 05:14 08:12 WBC 3.5 L RBC 3.70 L Hgb 11.6 L Hct 33.8 L MCV 91 MCH 31.5 MCHC 34.5 RDW 14.0 Plt Count 128 L Seg Neutrophils % 46.5 Lymphocytes % 43.5 Monocytes % 6.9 Eosinophils % 2.9 Basophils % 0.2 Absolute Neutrophils 1.6 L Absolute Lymphocytes 1.5 Absolute Monocytes 0.2 Absolute Eosinophils 0.1 Absolute Basophils 0.0 Sodium 141.5 Potassium 4.2 Chloride 104 Carbon Dioxide 27 Anion Gap 11 BUN 17 Creatinine 0.66 Est GFR ( Amer) > 60 Est GFR (Non-Af Amer) > 60 Glucose 106 Calcium 9.7 Total Bilirubin 0.4 AST 204 H ALT 337 H Alkaline Phosphatase 93 Total Protein 6.7 Albumin 4.1 Lipase 123.1 09/08/16 09/08/16 09/08/16 17:15 17:15 22:45 Creatine Kinase 97 84 CK-MB (CK-2) 1.73 Troponin I < 0.012 09/08/16 09/09/16 09/09/16 22:45 08:12 08:12 Creatine Kinase 68 CK-MB (CK-2) 1.09 1.29 Troponin I < 0.012 < 0.012 Impressions: Abdomen/Pelvis CT 09/08/16 00:00 IMPRESSION: No acute findings in the abdomen or pelvis. Chest/Abdomen CTA 09/08/16 00:00 IMPRESSION: No evidence of pulmonary embolus. Chest X-Ray 09/08/16 02:49 IMPRESSION: NO ACUTE RADIOGRAPHIC FINDING IN THE CHEST. Abdomen Ultrasound 09/08/16 04:34 IMPRESSION: 1. Possible 3.5 cm abdominal aortic aneurysm. 2. Otherwise, stable including 1.3 cm diameter common duct dilation, with prior cholecystectomy. Assessment & Plan - Diagnosis (1) Epigastric abdominal pain Is this a current diagnosis for this admission?: YesPlan: Her sudden onset epigastric pain associated with elevated LFTs is suggestive of choledocholithiasis. Her cholecystectomy was over 30 years ago so she could have a primary CBD stone. She is pain-free currently and is tolerating a diet. She will undergo an ERCP as outpatient. I advised her to stay on a low-fat diet until then. (2) Abnormal findings on imaging of biliary tract Is this a current diagnosis for this admission?: YesPlan: She has a chronically dilated intrahepatic ducts but her common bile duct is now also dilated. (3) Elevated liver enzymes Is this a current diagnosis for this admission?: Yes
[2016-09-09] MEDS: ROPINIROLE HCL 1 MG TABLET PO SCH (20:07)
[2016-09-10 05:01] LABS: ABSOLUTE EOSINOPHILS # (AUTO) 0.1 10^3/uL (0.0-0.6); ABSOLUTE LYMPHOCYTES (AUTO) 1.6 10^3/uL (0.5-4.7); ABSOLUTE MONOCYTES (AUTO) 0.3 10^3/uL (0.1-1.4); ABSOLUTE NEUT (AUTO) 1.8 10^3/uL (1.7-8.2); BASOPHILS % (AUTO) 0.3 % (0-2); EOSINOPHILS % (AUTO) 3.1 % (0-6); HEMATOCRIT 34.9 % (36.0-47.0); HGB HCT DIFFERENCE 1.1; LYMPHOCYTES % (AUTO) 41.8 % (13-45); MEAN CORPUSCULAR HEMOGLOBIN 31.5 pg (27.0-33.4); MEAN CORPUSCULAR HGB CONC 34.5 g/dL (32.0-36.0); MEAN CORPUSCULAR VOLUME 91 fl (80-97); MONOCYTES % (AUTO) 7.7 % (3-13); RED BLOOD COUNT 3.83 10^6/uL (3.72-5.28); SEGMENTED NEUTROPHILS % (AUTO) 47.1 % (42-78); WHITE BLOOD COUNT 3.9 10^3/uL (4.0-10.5)
[2016-09-10 05:12] LABS: ALANINE AMINOTRANSFERASE 247 U/L (9-52); ALBUMIN 4.2 g/dL (3.5-5.0); ALKALINE PHOSPHATASE 92 U/L (38-126); ANION GAP 12 (5-19); ASPARTATE AMINO TRANSFERASE 85 U/L (14-36); BILIRUBIN,DIRECT 0.3 mg/dL (0.0-0.4); BILIRUBIN,TOTAL 0.4 mg/dL (0.2-1.3); BLOOD UREA NITROGEN 19 mg/dL (7-20); CALCIUM 10.1 mg/dL (8.4-10.2); CARBON DIOXIDE 28 mmol/L (22-30); CHLORIDE 103 mmol/L (98-107); CREATININE RESULT 0.64 mg/dL (0.52-1.25); GLUCOSE 110 mg/dL (75-110); SODIUM 142.7 mmol/L (137-145); TOTAL PROTEIN 6.8 g/dL (6.3-8.2)
[2016-09-10] MEDS: LANSOPRAZOLE 30 MG TAB.RAP.DR PO SCH (08:47)
[2016-09-10] MEDS: ENOXAPARIN SODIUM INJ 40 MG/0.4 ML DISP.SYRIN SUBCUT SCH (10:13)
[2016-09-10] MEDS: GLIPIZIDE XL 2.5 MG TAB.ER.24 PO SCH (10:13)
[2016-09-10] MEDS: ASCORBIC ACID 500 MG TABLET PO SCH (10:13)
[2016-09-10] MEDS: MULTIVITAMIN TABLET PO SCH (10:13)
[2016-09-10] MEDS: CALCIUM CARBONATE 250 MG/VITAMIN D3 125 UNIT TABLET PO SCH (10:13)
[2016-09-10] MEDS: LOSARTAN POTASSIUM 50 MG TABLET PO SCH (10:14)
[2016-09-10 12:05] VITALS: BP 109/58
--- NOTE | 2016-09-10 14:39 | PDOC DISCHARGE SUMMARY ---
General - Admit/Disc Date/PCP Admission Date/Primary Care Provider: 09/08/16 13:38 DONN HOLT MD Discharge Date: 09/10/16 - Additional Information Discharge Diet: Cardiac, Diabetic Discharge Activity: Activity As Tolerated Home Medications: Ascorbic Acid [Vitamin C 500 mg Tablet] 500 mg PO DAILY 09/08/16 Calcium Carbonate/Vitamin D3 [Calcium 500-Vit D3 600 Caplet] 1 each PO DAILY Esomeprazole Magnesium [Nexium] 40 mg PO DAILY 09/08/16 Glipizide [Glipizide ER] 2.5 mg PO DAILY 09/08/16 Glucosamine Sulfate 2Kcl [Glucosamine] 1,500 mg PO Q12 09/08/16 Ibandronate Sodium [Boniva] 150 mg PO Q30D 09/08/16 Multivitamin [Multivitamins] 1 each PO DAILY 09/08/16 Ropinirole HCl [Requip] 1 mg PO DAILY 09/08/16 Simvastatin 40 mg PO DAILY 09/08/16 Telmisartan [Micardis 40 mg Tablet] 40 mg PO DAILY 09/08/16 History of Present Illness History of Present Illness: FAITH METZGER is a 71 year old female a history of the hypertensions and hyperlipidemia and other multiple medical problem came to the emergency department with a complaint for chest pain started last nightWith the heaviness in the chest and patients for some diaphoretic in patients tried to take some aspirin and weight but still the pain is not getting relief in patients call the EMSAnd brought to the emergency department and the patient was given nitroglycerin and according to the patient's currently patient's chest pain- free. pt see a Dr. Mckoy Since last couple of months and patient have a stress test was done and according to the patient was all stable and Dr. mckoy on aspirin In the initial ER workup patient's LFT was elevated was normal last month And patient ultrasound of the abdomen was done which is negative for any acute finding except patient have a some abdominal aortic aneurysm which is a 3.5 cm size but patient's currently denied any abdominal pain Patient's currently started the Crestor by Dr. mckoy and I think they may contribute to elevated LFT which patient have a same problem when patient was on Zocor in the past and increase the LFT and reduce the dose of the Zocor Hospital Course Hospital Course: Patient responded to management for her chest/epigastric region pain. Her CT scan evaluation did revealed new CBD dilatation with chronic intrahepatic duct dilatation. Patient denied any abdominal pain, nausea, vomiting. She is tolerating oral feeding. No diarrhea or constipation. She was seen by Dr. Romero , head of ethics and compliance, and plan to complete ERCP on outpatient. Physical Exam Vital Signs: Temp Pulse Resp BP Pulse Ox 97.7 F 65 18 109/58 L 98 09/10/16 11:07 09/10/16 11:07 09/10/16 11:07 09/10/16 11:07 09/10/16 11:07 Intake & Output 09/09/16 09/10/16 09/11/16 06:59 06:59 06:59 Intake Total 1053 1377 534 Balance 1053 1377 534 Weight 72.6 kg 71.8 kg General appearance: PRESENT: no acute distress, cooperative Head exam: PRESENT: atraumatic, normocephalic Eye exam: PRESENT: EOMI, PERRLA Mouth exam: PRESENT: moist Respiratory exam: PRESENT: clear to auscultation priyanka Cardiovascular exam: PRESENT: RRR. ABSENT: diastolic murmur, rubs, systolic murmur Vascular exam: PRESENT: normal capillary refill. ABSENT: pallor GI/Abdominal exam: PRESENT: normal bowel sounds, soft. ABSENT: distended, guarding, mass, organolmegaly, rebound, tenderness Extremities exam: ABSENT: pedal edema Musculoskeletal exam: PRESENT: deformity - due to multiple joint involvement with arthritis Neurological exam: PRESENT: alert, awake, oriented to person, oriented to place , oriented to time, oriented to situation, CN II-XII grossly intact. ABSENT: motor sensory deficit Psychiatric exam: PRESENT: appropriate affect, normal mood. ABSENT: homicidal ideation, suicidal ideation Skin exam: PRESENT: dry, intact, warm. ABSENT: cyanosis, rash Results Laboratory Results: 09/10/16 04:11 09/10/16 04:11 09/10/16 09/10/16 04:11 04:11 WBC 3.9 L RBC 3.83 Hgb 12.0 Hct 34.9 L MCV 91 MCH 31.5 MCHC 34.5 RDW 14.0 Plt Count 130 L Seg Neutrophils % 47.1 Lymphocytes % 41.8 Monocytes % 7.7 Eosinophils % 3.1 Basophils % 0.3 Absolute Neutrophils 1.8 Absolute Lymphocytes 1.6 Absolute Monocytes 0.3 Absolute Eosinophils 0.1 Absolute Basophils 0.0 Sodium 142.7 Potassium 4.0 Chloride 103 Carbon Dioxide 28 Anion Gap 12 BUN 19 Creatinine 0.64 Est GFR ( Amer) > 60 Est GFR (Non-Af Amer) > 60 Glucose 110 Calcium 10.1 Total Bilirubin 0.4 AST 85 H ALT 247 H Alkaline Phosphatase 92 Total Protein 6.8 Albumin 4.2 09/08/16 09/08/16 09/08/16 17:15 17:15 22:45 Creatine Kinase 97 84 CK-MB (CK-2) 1.73 Troponin I < 0.012 09/08/16 09/09/16 09/09/16 22:45 08:12 08:12 Creatine Kinase 68 CK-MB (CK-2) 1.09 1.29 Troponin I < 0.012 < 0.012 Impressions: Abdomen/Pelvis CT 09/08/16 00:00 IMPRESSION: No acute findings in the abdomen or pelvis. Chest/Abdomen CTA 09/08/16 00:00 IMPRESSION: No evidence of pulmonary embolus. Chest X-Ray 09/08/16 02:49 IMPRESSION: NO ACUTE RADIOGRAPHIC FINDING IN THE CHEST. Abdomen Ultrasound 09/08/16 04:34 IMPRESSION: 1. Possible 3.5 cm abdominal aortic aneurysm. 2. Otherwise, stable including 1.3 cm diameter common duct dilation, with prior cholecystectomy. Qualifiers PATEINT BEING DISCHARGED WITH ANY OF THE FOLLOWING DIAGNOSIS?: No Plan Discharge Plan: Discharge home today with follow up arrangement for outpatient ERCP with Dr Romero. Patient was instructed to call Dr Donn Holt and [facility] offices for post discharge follow up appointment. Time Spent: Less than 30 Minutes
== END 2016-09-10 15:35 | disposition home or self-care (01) ==
LOC: ER 02:49 → INTOOBSV 04:47 → EH 04:47 → OBSVTOIN 04:47 → UNDOADMOB 04:47 → OBSVTOIN 06:17 → EH 06:17 → INTOOBSV 06:17 → UNDOADMOB 06:17 → 3W 08:56 → EH 08:56 → 3W 13:38
PROVIDERS: ADMIT Family Medicine; ATTEND Family Medicine
DX: R07.9 Chest pain, unspecified (principal); R10.13 Epigastric pain; I71.4 Abdominal aortic aneurysm, without rupture; I10 Essential (primary) hypertension; E78.5 Hyperlipidemia, unspecified; K83.8 Other specified diseases of biliary tract; R11.0 Nausea; R42 Dizziness and giddiness; K21.9 Gastro-esophageal reflux disease without esophagitis; I25.10 Atherosclerotic heart disease of native coronary artery without angina pectoris; F41.9 Anxiety disorder, unspecified; R74.8 Abnormal levels of other serum enzymes; E11.9 Type 2 diabetes mellitus without complications; M13.89 Other specified arthritis, multiple sites; Z79.899 Other long term (current) drug therapy; Z79.84 Long term (current) use of oral hypoglycemic drugs; Z90.49 Acquired absence of other specified parts of digestive tract; Z90.710 Acquired absence of both cervix and uterus; Z98.51 Tubal ligation status; Z98.890 Other specified postprocedural states
CPT/HCPCS: 93005 ×3; 99285; 36415 ×3; 82553 ×2; 82962 ×3; 82550 ×2; 83690; 85025 ×3; 80076; 80048; 80053 ×2; 84484 ×2; 71010; 76705; 71275; 74177; 93010 ×2; G0378 ×3; A9270 ×23; J3490; J1650 ×3; J1815

== ENCOUNTER 2016-09-13 15:05 | Day surgery (SDC) | payer MEDICARE, OTHER ==
[2016-09-13] MEDS ORDERED: NALOXONE HCL INJ/PF 0.4 MG/1 ML SDV ONE (15:57)
[2016-09-13] MEDS ORDERED: EPINEPHRINE INJ 1 MG/10 ML DISP.SYRIN ONE (15:58)
[2016-09-13] MEDS ORDERED: FLUMAZENIL INJ 0.5 MG/5 ML VIAL IV ONE (15:58)
[2016-09-13] MEDS ORDERED: GLUCAGON,HUMAN RECOMB 1 MG INJ ONE (15:58)
[2016-09-13] MEDS: MIDAZOLAM 2 MG/2 ML INJ ONE ×4 (17:04→17:43)
[2016-09-13] MEDS: FENTANYL CITRATE INJ/PF 100 MCG/2 ML AMPUL ONE ×3 (17:06→17:19)
--- NOTE | 2016-09-13 18:03 | Operative Report ---
Operative Report DATE OF SURGERY: 09/13/16 Operative Report: Pre-op diagnosis: Epigastric pain and abnormal LFTs Post-op diagnosis: Normal distal common bile duct Surgery: ERCP Medications: Versed 5mg Fentanyl 100mcg IV push Tissue removed: None Procedure: After informed consent obtained from patient, the throat was sprayed with Hurricane and conscious sedation was achieved. The ERCP endoscope was then inserted into the esophagus blindly and advanced into the stomach. The duodenum was entered and the ampulla was identified. Using the triple-lumen sphincterotomy catheter the common bile duct attempt was made to freely cannulate the common bile duct. Multiple attempts were unsuccessful. There was partial opacification of the distal common bile duct which was unremarkable. The pancreatic duct was intentionally not cannulated. Patient tolerated procedure well. Findings Common bile duct: Not freely cannulated and not fully opacified Intrahepatic ducts: Plan: We will proceed with MRCP OPERATION: .
--- NOTE | 2016-09-13 18:37 | PDOC DISCHARGE SUMMARY ---
Discharge Summary (SDC) - Discharge Final Diagnosis: Abnormal LFTs Date of Surgery: 09/13/16 Condition: Stable Forms: Sedation D/C Instructions, Discharge POC-Surgical Service Referrals: ALEXANDRIA DELATORRE MD [ACTIVE STAFF] - Discharge Diet: As Tolerated, Clear Liquids Discharge Activity: Activity As Tolerated, Balance Activity w/Rest, No Driving Home Care Assistance: None Needed Report the Following to Your Physician Immediately: Shortness of Breath, Increase in Pain, Fever over 101 Degrees, Unusual Bleeding
[2016-09-13 18:52] VITALS: BP 150/66
[2016-09-13] MEDS ORDERED: SIMETHICONE 80 MG TAB.CHEW ONE (19:06)
[2016-09-13 19:29] LABS: ALANINE AMINOTRANSFERASE 162 U/L (9-52); ALBUMIN 4.4 g/dL (3.5-5.0); ALKALINE PHOSPHATASE 98 U/L (38-126); ASPARTATE AMINO TRANSFERASE 91 U/L (14-36); BILIRUBIN,DIRECT 0.5 mg/dL (0.0-0.4); BILIRUBIN,TOTAL 0.7 mg/dL (0.2-1.3); TOTAL PROTEIN 7.1 g/dL (6.3-8.2)
--- NOTE | 2016-09-14 08:22 | RADIOLOGY REPORT (SQ) ---
EXAM DESCRIPTION: ENDO CATH BILI/PANCREATIC COMPLETED DATE/TIME: 09/13/2016 8:29 pm REASON FOR STUDY: ERCP R94.5 ABNORMAL RESULTS OF LIVER FUNCTION STUDIES R10.13 EPIGASTRIC PAIN COMPARISON: None. FLUOROSCOPY TIME: 1.8 minutes 2 images saved to PACS. TECHNIQUE: Intra-operative images acquired during surgical procedure to evaluate progress. NUMBER OF IMAGES: 2 LIMITATIONS: None. FINDINGS: 2 spot fluoroscopic images from ERCP submitted for review. Images demonstrate an endoscop e projecting over the right upper quadrant. Surgical clips noted. Please see operative report full details regarding procedure. IMPRESSION: IMAGE(S) OBTAINED DURING PROCEDURE. COMMENT: Quality ID [id number]: Final reports for procedures using fluoroscopy that document radiation exp osure indices, or exposure time and number of fluorographic images (if radiation exposure indices are not available) Please consult full operative report of the attending physician for description of the procedure. TECHNICAL DOCUMENTATION: JOB ID: [id number] [employer]- All Rights Reserved
== END 2016-09-13 19:25 | disposition home or self-care (01) ==
LOC: END 15:05
PROVIDERS: ATTEND Internal Medicine Gastroenterology
PROC: 0FJB8ZZ Inspection of Hepatobiliary Duct, Via Natural or Artificial Opening Endoscopic (ICD-10-PCS; principal; 2016-09-13 15:45)
DX: R94.5 Abnormal results of liver function studies (principal); R10.13 Epigastric pain; I10 Essential (primary) hypertension; E78.5 Hyperlipidemia, unspecified; I25.10 Atherosclerotic heart disease of native coronary artery without angina pectoris; J45.909 Unspecified asthma, uncomplicated; K21.9 Gastro-esophageal reflux disease without esophagitis; Z79.899 Other long term (current) drug therapy; Z88.5 Allergy status to narcotic agent; Z88.6 Allergy status to analgesic agent
CPT/HCPCS: 43260; 36415; 82962; 80076; 74330; J2250; J3010; J1610; A9270; J0171; J2310; J3490

== ENCOUNTER → 2016-09-16 | Outpatient (CLI) | payer MEDICARE, OTHER ==
--- NOTE | 2016-09-16 10:27 | RADIOLOGY REPORT (SQ) ---
EXAM DESCRIPTION: MRI ABDOMEN WITHOUT COMPLETED DATE/TIME: 09/16/2016 8:30 am REASON FOR STUDY: MRCP EPIGASTRIC PAIN (R10.13), ABN RESULTS OF LFT (R94.5), OTHER SPECIF R10.13 EPIGASTRIC PAIN R94.5 ABNORMAL RESULTS OF LIVER FUNCTION STUDIES K83.8 OTHER SPECIFIED DISEASES O F BILIARY TRACT COMPARISON: Abdominal ultrasound 09/08/2016 CT abdomen pelvis 12/15/2006, 06/28/2011, 11/03/2011, 09/07/2011, 11/15/2011 TECHNIQUE: Noncontrast MRCP. Source and MIP images reviewed. LIMITATIONS: None. FINDINGS: GALLBLADDER: Surgically absent INTRAHEPATIC DUCTS: Mildly prominent, similar compared to prior CT exams EXTRAHEPATIC DUCTS: Common bile duct at the adam hepatis measures 11 mm in greatest diameter. No fi lling defects worrisome for gallstones. No distal common bile duct or common hepatic duct stricture. PANCREAS: Generally homogeneous, no gross mass or significant signal alteration. No surrounding infl ammatory changes or fluid. Pancreatic duct is normal. LIVER, SPLEEN, KIDNEYS, ADRENALS: Benign 10 mm and 1.7 cm right lobe liver cysts. Benign-appearing 2 .4 cm left upper pole renal cortical cyst. No adrenal nodules. Spleen unremarkable. VESSELS: No abdominal aortic aneurysm. LUNG BASES: Not well seen OTHER: No other significant finding. IMPRESSION: Post cholecystectomy. Mild prominence of the intrahepatic bile ducts, common hepatic and common bile duct. No ductal stric tures or stones are identified. Noncontrast images of the pancreas are unremarkable. TECHNICAL DOCUMENTATION: JOB ID: [id number] [employer]- All Rights Reserved
== END ==
LOC: RAD 07:09
PROVIDERS: ATTEND Internal Medicine Gastroenterology
DX: R10.13 Epigastric pain (principal); R94.5 Abnormal results of liver function studies; K83.8 Other specified diseases of biliary tract; Z90.49 Acquired absence of other specified parts of digestive tract
CPT/HCPCS: 74181

== ENCOUNTER → 2017-03-17 | Outpatient (CLI) | payer MEDICARE, OTHER ==
[2017-03-17 10:15] LABS: ANION GAP 10 (5-19); BLOOD UREA NITROGEN 14 mg/dL (7-20); CALCIUM 10.1 mg/dL (8.4-10.2); CARBON DIOXIDE 32 mmol/L (22-30); CHLORIDE 103 mmol/L (98-107); CHOLESTEROL 178.33 mg/dL (0-200); GLUCOSE 79 mg/dL (75-110); MAGNESIUM 2.1 mg/dL (1.6-2.3); POTASSIUM 4.7 mmol/L (3.6-5.0); SODIUM 145.4 mmol/L (137-145); TRIGLYCERIDES 113 mg/dL (<150)
[2017-03-17 10:31] LABS: DIRECT LDL 98 mg/dL (<100)
[2017-03-17 14:06] LABS: ALANINE AMINOTRANSFERASE 40 U/L (9-52); ALBUMIN 4.2 g/dL (3.5-5.0); ALKALINE PHOSPHATASE 73 U/L (38-126); ASPARTATE AMINO TRANSFERASE 41 U/L (14-36); BILIRUBIN,DIRECT 0.4 mg/dL (0.0-0.4); BILIRUBIN,TOTAL 0.5 mg/dL (0.2-1.3); TOTAL PROTEIN 6.7 g/dL (6.3-8.2)
== END ==
LOC: OD 08:32
PROVIDERS: ATTEND Internal Medicine Cardiovascular Disease
DX: E78.2 Mixed hyperlipidemia (principal); R00.2 Palpitations; R94.5 Abnormal results of liver function studies
CPT/HCPCS: 36415; 80048; 80061; 80076; 83735; 84443

== ENCOUNTER 2017-04-28 14:54 | Emergency (ER) | payer MEDICARE, OTHER ==
--- NOTE | 2017-04-28 15:48 | ER Document Report ---
ED Medical Screen (RME) - General Chief Complaint: S/S of Possible Stroke Stated Complaint: SLURRED SPEECH Time Seen by Provider: 04/28/17 15:39 Notes: Patient presents with 3 days of intermittent slurred speech and problems word finding. Patient is asymptomatic in the emergency department. No history of heart attacks or strokes and does not take any blood thinners. She was urged by her family members to come into the emergency department for evaluation which is why she waited 3 days until coming in. She does admit to being under a lot more stress than normal caring for her sick . I have greeted and performed a rapid initial assessment of this patient. A comprehensive ED assessment and evaluation of the patient, analysis of test results and completion of the medical decision making process will be conducted by additional ED providers. PHYSICAL EXAMINATION: GENERAL: Well-appearing, well-nourished and in no acute distress. HEAD: Atraumatic, normocephalic. EYES: Pupils equal round extraocular movements intact, conjunctiva are normal. ENT: Nares patent NECK: Normal range of motion LUNGS: No respiratory distress Musculoskeletal: Normal range of motion NEUROLOGICAL: Normal speech, normal gait. PSYCH: Normal mood, normal affect. SKIN: Warm, Dry, normal turgor, no rashes or lesions noted. TRAVEL OUTSIDE OF THE [place] IN LAST 30 DAYS: No - Related Data Allergies/Adverse Reactions: amoxicillin trihydrate [From Augmentin] Allergy (Severe, Verified 04/28/17 14:55 ) C-DIFF, COLITIS naproxen Allergy (Severe, Verified 04/28/17 14:55) SEVERE DIARRHEA Potassium Clavulanate * [From Augmentin] Allergy (Severe, Verified 04/28/17 14: 55) C-DIFF, DIARRHEA codeine [Codeine] Allergy (Intermediate, Verified 04/28/17 14:55) CP Past Medical History - Social History Chew tobacco use (# tins/day): No Frequency of alcohol use: None Drug Abuse: None - Past Medical History Cardiac Medical History: Reports: Hx Coronary Artery Disease, Hx Hypercholesterolemia, Hx Hypertension Denies: Hx Atrial Fibrillation, Hx Congestive Heart Failure, Hx Heart Attack , Hx Peripheral Vascular Disease, Hx Pulmonary Embolism, Hx Heart Murmur Pulmonary Medical History: Reports: Hx Asthma - CHILD AND YOUG ADULT, Hx Pneumonia Denies: Hx Bronchitis, Hx COPD, Hx Respiratory Failure, Hx Sleep Apnea, Hx Tuberculosis Neurological Medical History: Denies: Hx Cerebrovascular Accident, Hx Seizures Endocrine Medical History: Denies: Hx Graves' Disease, Hx Hyperthyroidism, Hx Hypothyroidism Renal/ Medical History: Denies: Hx End Stage Renal Disease, Hx Kidney Stones, Hx Ovarian Cysts, Hx Peritoneal Dialysis, Hx Pelvic Inflammatory Disease Malignancy Medical History: Denies: Hx Breast Cancer, Hx Cervical Cancer, Hx Leukemia, Hx Lung Cancer, Hx Ovarian Cancer GI Medical History: Reports: Hx Gastroesophageal Reflux Disease, Hx Ulcer. Denies: Hx Crohn's Disease, Hx Hiatal Hernia, Hx Irritable Bowel, Hx Liver Failure, Hx Pancreatitis Musculoskeltal Medical History: Denies Hx Arthritis, Denies Hx Fibromyalgia, Denies Hx Multiple Sclerosis, Denies Hx Muscular Dystrophy Psychiatric Medical History: Reports: Hx Depression Denies: Hx Dementia Traumatic Medical History: Denies: Hx Fractures Infectious Medical History: Denies: Hx HIV Past Surgical History: Reports: Hx Abdominal Surgery - benign colon cyst with 4 inch resection, Hx Appendectomy, Hx Cholecystectomy, Hx Hysterectomy, Hx Tonsillectomy, Hx Tubal Ligation. Denies: Hx Bowel Surgery, Hx Section , Hx Colostomy, Hx Coronary Artery Bypass Graft, Hx Gastric Bypass Surgery, Hx Herniorrhaphy, Hx Mastectomy, Hx Pacemaker - Immunizations Hx Diphtheria, Pertussis, Tetanus Vaccination: No Physical Exam - Vital signs Vitals: Pulse Resp BP Pulse Ox 72 18 179/79 H 98 04/28/17 15:01 04/28/17 15:01 04/28/17 15:01 04/28/17 15:01 Course - Vital Signs Vital signs: Temp Pulse Resp BP Pulse Ox 72 18 179/79 H 98 04/28/17 15:01 04/28/17 15:01 04/28/17 15:01 04/28/17 15:01
--- NOTE | 2017-04-28 16:31 | RADIOLOGY REPORT (SQ) ---
EXAM DESCRIPTION: CT HEAD WITHOUT COMPLETED DATE/TIME: 04/28/2017 4:24 pm REASON FOR STUDY: Intermittent slurred speech and aphasia COMPARISON: None. TECHNIQUE: Axial images acquired through the brain without intravenous contrast. Images reviewed wi th bone, brain and subdural windows. Images stored on PACS. All CT scanners at this facility use dose modulation, iterative reconstruction, and/or weight based d osing when appropriate to reduce radiation dose to as low as reasonably achievable (ALARA). [facility]: Dose Right [facility]: CareDose [facility]: Dose Right [facility]: Teradose 4D [facility]: [employer] RADIATION DOSE: mGy. LIMITATIONS: None. FINDINGS: VENTRICLES: Prominent. CEREBRUM: No masses. No hemorrhage. No midline shift. Areas of low density in the white matter mos t likely due to chronic micro-vascular ischemic change. No evidence for acute infarction. CEREBELLUM: No masses. No hemorrhage. No alteration of density. No evidence for acute infarction. EXTRAAXIAL SPACES: Mild age-related involutional change. No fluid collections. No masses. ORBITS AND GLOBE: No intra- or extraconal masses. Normal contour of globe without masses. CALVARIUM: No fracture. PARANASAL SINUSES: No fluid or mucosal thickening. SOFT TISSUES: No mass or hematoma. OTHER: No other significant finding. IMPRESSION: MILD CHRONIC CHANGES OF ATROPHY AND MICROVASCULAR ISCHEMIA. NO ACUTE PROCESS. EVIDENCE OF ACUTE STROKE: NO. TECHNICAL DOCUMENTATION: JOB ID: [id number] Quality ID # [id number]: Final reports with documentation of one or more dose reduction techniques (e.g., Au tomated exposure control, adjustment of the mA and/or kV according to patient size, use of iterative reconstruction technique) 2010 [employer]- All Rights Reserved Reading location - IP/workstation name: [email or web address]
--- NOTE | 2017-04-28 16:33 | RADIOLOGY REPORT (SQ) ---
EXAM DESCRIPTION: CHEST SINGLE VIEW COMPLETED DATE/TIME: 04/28/2017 4:26 pm REASON FOR STUDY: Intermittent slurred speech and aphasia COMPARISON: 11/19/2015. EXAM PARAMETERS: NUMBER OF VIEWS: One view. TECHNIQUE: Single frontal radiographic view of the chest acquired. RADIATION DOSE: NA LIMITATIONS: None. FINDINGS: LUNGS AND PLEURA: No opacities, masses or pneumothorax. No pleural effusion. MEDIASTINUM AND HILAR STRUCTURES: No masses. Contour normal. HEART AND VASCULAR STRUCTURES: Heart normal in size. Normal vasculature. BONES: No acute findings. HARDWARE: Clips in the upper abdomen. OTHER: No other significant finding. IMPRESSION: NO ACUTE RADIOGRAPHIC FINDING IN THE CHEST. TECHNICAL DOCUMENTATION: JOB ID: [id number] [email or web address]- All Rights Reserved Reading location - IP/workstation name: [facility]-[email or web address]
[2017-04-28 16:35] LABS: ABSOLUTE EOSINOPHILS # (AUTO) 0.1 10^3/uL (0.0-0.6); ABSOLUTE LYMPHOCYTES (AUTO) 1.9 10^3/uL (0.5-4.7); ABSOLUTE MONOCYTES (AUTO) 0.2 10^3/uL (0.1-1.4); ABSOLUTE NEUT (AUTO) 3.1 10^3/uL (1.7-8.2); BASOPHILS % (AUTO) 0.3 % (0-2); EOSINOPHILS % (AUTO) 2.7 % (0-6); HEMATOCRIT 39.5 % (36.0-47.0); HEMOGLOBIN 13.2 g/dL (12.0-15.5); MEAN CORPUSCULAR HEMOGLOBIN 30.7 pg (27.0-33.4); MEAN CORPUSCULAR HGB CONC 33.4 g/dL (32.0-36.0); MEAN CORPUSCULAR VOLUME 92 fl (80-97); MONOCYTES % (AUTO) 4.6 % (3-13); PLATELET COUNT 157 10^3/uL (150-450); RED BLOOD COUNT 4.29 10^6/uL (3.72-5.28); SEGMENTED NEUTROPHILS % (AUTO) 57.4 % (42-78); TOTAL CELLS COUNTED % (AUTO) 100 %; WHITE BLOOD COUNT 5.4 10^3/uL (4.0-10.5)
[2017-04-28 16:45] LABS: APPEARANCE,URINE CLEAR; BILIRUBIN,URINE NEGATIVE (NEGATIVE); COLOR,URINE STRAW; GLUCOSE, URINE NEGATIVE (NEGATIVE); KETONES,URINE NEGATIVE (NEGATIVE); LEUKOCYTE ESTERASE,URINE MODERATE (NEGATIVE); NITRITE,URINE NEGATIVE (NEGATIVE); PROTEIN,URINE NEGATIVE (NEGATIVE); URINE SPECIFIC GRAVITY 1.005; UROBILINOGEN,URINE NEGATIVE mg/dL (<2.0)
[2017-04-28 17:02] LABS: ALANINE AMINOTRANSFERASE 36 U/L (9-52); ALBUMIN 4.9 g/dL (3.5-5.0); ALKALINE PHOSPHATASE 56 U/L (38-126); ANION GAP 13 (5-19); ASPARTATE AMINO TRANSFERASE 26 U/L (14-36); BILIRUBIN,DIRECT 0.3 mg/dL (0.0-0.4); BILIRUBIN,TOTAL 0.3 mg/dL (0.2-1.3); BLOOD UREA NITROGEN 16 mg/dL (7-20); CALCIUM 10.8 mg/dL (8.4-10.2); CARBON DIOXIDE 29 mmol/L (22-30); CHLORIDE 102 mmol/L (98-107); GLUCOSE 68 mg/dL (75-110); POTASSIUM 3.8 mmol/L (3.6-5.0); SODIUM 143.8 mmol/L (137-145); TOTAL PROTEIN 7.8 g/dL (6.3-8.2)
[2017-04-28 17:03] LABS: INTERNATIONAL RATION (INR) 0.88; PARTIAL THROMBOPLASTIN TIME 28.1 SEC (23.5-35.8); PROTHROMBIN TIME 12.6 SEC (11.4-15.4)
--- NOTE | 2017-04-28 17:38 | ER Document Report ---
ED Neuro Symptoms/Deficit - General Chief Complaint: S/S of Possible Stroke Stated Complaint: SLURRED SPEECH Time Seen by Provider: 04/28/17 15:39 Mode of Arrival: Ambulatory Information source: Patient, Relative TRAVEL OUTSIDE OF THE [place] IN LAST 30 DAYS: No - HPI Patient complains to provider of: Speech Impairment Onset: Other - 3 DAYS AGO Awoke with symptoms: No Exact time of onset: UNSURE Symptoms are: Intermittent episodes Duration: Better - BETTER TODAY THAN LAST 2 PRECEDING DAYS Quality of pain: No pain Context: None Loss of consciousness: No loss of consciousness Was STROKE ALERT Called: No Baseline Cognitive: Alert, oriented X 3 Baseline Gait: Walks w/o assistance Alert To: Name/Voice Patient Orientation: Person, Place, Time, Events Impaired speech/swallowing: Difficult - SLIGHT SLURRING OF SPEECH Associated symptoms: None Similar symptoms previously: No Recently seen / treated by doctor: No - Related Data Allergies/Adverse Reactions: amoxicillin trihydrate [From Augmentin] Allergy (Severe, Verified 04/28/17 14:55 ) C-DIFF, COLITIS naproxen Allergy (Severe, Verified 04/28/17 14:55) SEVERE DIARRHEA Potassium Clavulanate * [From Augmentin] Allergy (Severe, Verified 04/28/17 14: 55) C-DIFF, DIARRHEA codeine [Codeine] Allergy (Intermediate, Verified 04/28/17 14:55) CP Past Medical History - General Information source: Patient - Social History Smoking Status: Never Smoker Chew tobacco use (# tins/day): No Frequency of alcohol use: None Drug Abuse: None Lives with: Spouse/Significant other - 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 TOTAL CARE SINCE HIS D/C FROM HOSPITAL 3 WEEKS AGO Family History: Reviewed & Not Pertinent Patient has suicidal ideation: No Patient has homicidal ideation: No - Past Medical History Cardiac Medical History: Reports: Hx Coronary Artery Disease, Hx Hypercholesterolemia, Hx Hypertension Denies: Hx Atrial Fibrillation, Hx Congestive Heart Failure, Hx Heart Attack , Hx Peripheral Vascular Disease, Hx Pulmonary Embolism, Hx Heart Murmur Pulmonary Medical History: Reports: Hx Asthma - CHILD AND YOUG ADULT, Hx Pneumonia Denies: Hx Bronchitis, Hx COPD, Hx Respiratory Failure, Hx Sleep Apnea, Hx Tuberculosis EENT Medical History: Reports: None Neurological Medical History: Reports: None. Denies: Hx Cerebrovascular Accident - HAD CAROTID DOPPLER LESS THAN I YEAR AGO, NEG., Hx Seizures Endocrine Medical History: Reports: Hx Diabetes Mellitus Type 2. Denies: Hx Graves' Disease, Hx Hyperthyroidism, Hx Hypothyroidism Renal/ Medical History: Reports: None. Denies: Hx End Stage Renal Disease, Hx Kidney Stones, Hx Ovarian Cysts, Hx Peritoneal Dialysis, Hx Pelvic Inflammatory Disease Malignancy Medical History: Reports: None. Denies: Hx Breast Cancer, Hx Cervical Cancer, Hx Leukemia, Hx Lung Cancer, Hx Ovarian Cancer GI Medical History: Reports: Hx Gastroesophageal Reflux Disease, Hx Ulcer. Denies: Hx Crohn's Disease, Hx Hiatal Hernia, Hx Irritable Bowel, Hx Liver Failure, Hx Pancreatitis Musculoskeltal Medical History: Denies Hx Arthritis, Denies Hx Fibromyalgia, Denies Hx Multiple Sclerosis, Denies Hx Muscular Dystrophy Psychiatric Medical History: Reports: Hx Depression Denies: Hx Dementia Traumatic Medical History: Denies: Hx Fractures Infectious Medical History: Denies: Hx HIV Past Surgical History: Reports: Hx Abdominal Surgery - benign colon cyst with 4 inch resection, Hx Appendectomy, Hx Cholecystectomy, Hx Hysterectomy, Hx Tonsillectomy, Hx Tubal Ligation. Denies: Hx Bowel Surgery, Hx Section , Hx Colostomy, Hx Coronary Artery Bypass Graft, Hx Gastric Bypass Surgery, Hx Herniorrhaphy, Hx Mastectomy, Hx Pacemaker - Immunizations Hx Diphtheria, Pertussis, Tetanus Vaccination: No Hx Pneumococcal Vaccination: 11/24/11 Review of Systems - Review of Systems Constitutional: No symptoms reported EENT: No symptoms reported Cardiovascular: No symptoms reported Respiratory: No symptoms reported Gastrointestinal: No symptoms reported Genitourinary: No symptoms reported Female Genitourinary: Post menopausal Musculoskeletal: No symptoms reported Skin: No symptoms reported Neurological/Psychological: See HPI. denies: Confusion, Weakness, Headaches Physical Exam - Vital signs Vitals: Pulse Resp BP Pulse Ox 72 18 179/79 H 98 04/28/17 15:01 04/28/17 15:01 04/28/17 15:01 04/28/17 15:01 Interpretation: Hypertensive - General General appearance: Appears well, Alert In distress: None - HEENT Head: Normocephalic Eyes: Normal Conjunctiva: Normal Ears: Normal Nasal: Normal Mouth/Lips: Normal Mucous membranes: Normal Neck: Normal. No: Carotid bruit, Thyromegally - Respiratory Respiratory status: No respiratory distress Breath sounds: Normal - Cardiovascular Rhythm: Regular Heart sounds: Normal auscultation Murmur: No - Abdominal Inspection: Normal Distension: No distension - Extremities General upper extremity: Normal inspection General lower extremity: Normal inspection - Neurological Neuro grossly intact: Yes Cognition: Normal Orientation: AAOx4 Keyla Coma Scale Eye Opening: Spontaneous [place] Coma Scale Verbal: Oriented Keyla Coma Scale Motor: Obeys Commands Keyla Coma Scale Total: 15 Speech: Normal Cranial nerves: Normal Cerebellar coordination: Normal Motor strength normal: LUE, RUE, LLE, RLE Additional motor exam 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 Sensory: Normal - Psychological Associated symptoms: Normal affect, Normal mood - Skin Skin Temperature: Warm Skin Moisture: Dry Skin Color: Normal Skin Turgor: Elastic Course - Vital Signs Vital signs: Temp Pulse Resp BP Pulse Ox 72 18 179/79 H 98 04/28/17 15:01 04/28/17 15:01 04/28/17 15:01 04/28/17 15:01 - Laboratory Result Diagrams: 04/28/17 16:10 04/28/17 16:10 Laboratory results interpreted by me: 04/28/17 04/28/17 16:10 16:10 Glucose 68 L Calcium 10.8 H Ur Leukocyte Esterase MODERATE H Urine Ascorbic Acid 20 H ED Alteplase Inc/Exc Criteria - Date/Time patient last known well: Date/Time: 04/25/2017 - Inclusion Criteria: 1: Patient presented to ED within 3 hours of acute ischemic stroke symptom onset ? -: No 2: Did baseline CT exclude intracranial hemorrhage and/or other risk factors? -: Yes 3: Is the age of the patient 18 years of age or greater? -: Yes : If any of the above questions are answered "NO" then stop, patient is not a candidate for Alteplase, : If all of the above questions are answered "YES" then continue with Exclusion Criteria. - Exclusion Criteria: 1: Is there evidence of intracranial hemorrhage on baseline CT? 2: Is there suspicion of subarachnoid hemorrhage (even if CT negative)? 3: Is there a history of serious head trauma, recent previous stroke or OK within 3 months? 4: Does the patient have a clinical presentation consistent with OK or post-OK pericarditis? 5: Is there history of intracranial hemorrhage? 6: On repeated measurement is Systolic BP greater than 185mmHg or Diastolic BP greater that 110 mmHg and is aggressive treatment needed to reduce blood pressure to these limits (e.g. constant infusion of an anti-hypertensive)? 7: Did the patient awake with stroke symptoms? 8: Has the patient had a lumbar puncture or an arterial puncture at a non- compressile site within 7 days? 9: With in the last 14 days did the patient have surgery or major trauma? 10: Is the patient or less than 2 weeks? 11: Was there any active bleeding or acute trauma? 12: Does the patient have intracranial neoplasm, arteriovenous malformation or aneurysm? 13: Does the patient have abnormal glucose (less than 50 or greater than 400mg/ dl)? Record glucose in Comment. 14: Patient has rapidly improving symptoms at the time Alteplase is to be Administered. 15: Does the patient have any risks for bleeding, including but not limited to: a.: Current use of Coumadin with PT greater than 15 seconds or INR greater than 1.7. b.: Current use of Pradaxa (Dabigatran). c.: Heparin administereed within the past 48 hours and PTT elevated. d.: Platelet count less than 100,000/mm. e.: Major surgery or serious trauma within 14 days. f.: Gastrointestinal or gynecological urinary bleeding within 14 days. g.: Myocardial Infarction (OK) within 3 months. : If the answer to any of the above questions is "YES" then stop, the patient is not a candidate for Alteplase. : If the answer to all of the above questions is "NO" then the patient may be eligible for the Administration of Alteplase. : If the patient is noted to have seizure activity at onset of Stroke symptoms; Consult Neurologist for further evaluation. - The patient is: -: Included and is eligible to receive Alteplase. *Initiate bed placement at higher level of care* Reviewd risks & benefits of thrombolytic therapy: I have reviewed the risks and benefits of thrombolytic therapy with the patient and/or his/her family. -: Excluded and not eligible to receive Alteplase for the above exclusions. -: Excluded and not eligible to receive Alteplase for other reasons (specify in comments): - Diagnosis of TIA: -: Patient presented with transient symptoms that are now resolved and no other neurologic findings are currently present. List symptoms in comments. -: Patient is NOT a candidate for tPA. -: ____(put name in comment) has been consulted for admission and continued evaluation of risk factor assessment. Discharge - Discharge Clinical Impression: Speech abnormality Qualifiers: Speech disturbance type: slurred speech Qualified Code(s): R47.81 - Slurred speech Urinary tract infection Qualifiers: Urinary tract infection type: acute cystitis Hematuria presence: without hematuria Qualified Code(s): N30.00 - Acute cystitis without hematuria Hypertension Qualifiers: Hypertension type: essential hypertension Qualified Code(s): I10 - Essential ( primary) hypertension Condition: Stable Disposition: HOME, SELF-CARE Instructions: Nitrofurantoin ([facility]), Urinary Tract Infection ([facility]), Calcium Channel Blockers ([facility]) Additional Instructions: TAKE NITROFURANTOIN DIRECTED, BEGIN TOMORROW. BEGIN TAKING AMLODIPINE DIRECTED TOMORROW. CONTINUE ALL OTHER MEDICATIONS BEFORE. FOLLOW UP WITH DR. PORTILLO, CALL MONDAY FOR APPT. RETURN TO E.R. IF YOU GET WORSE IN ANY WAY, ANY TIME. Referrals: FALGUNI PORTILLO MD [Primary Care Provider] - Follow up in 3-5 days
[2017-04-28] MEDS ORDERED: AMLODIPINE BESYLATE 5 MG TABLET PO ONE (19:13)
[2017-04-28 20:47] VITALS: BP 163/67
--- NOTE | 2017-04-28 20:54 | EKG REPORT ---
SEVERITY:- NORMAL ECG - SINUS RHYTHM : Confirmed by: Lenny Mckoy MD 28-Apr-2017 20:53:39
== END 2017-04-28 20:56 | disposition home or self-care (01) ==
LOC: ER 14:54
DX: N30.00 Acute cystitis without hematuria (principal); R47.81 Slurred speech; I10 Essential (primary) hypertension
CPT/HCPCS: 93005; 99285; 36415; 87086; 85025; 85610; 85730; 87088; 80053; 81001; 84484; 87186; 71045; 70450; 93010; A9270

== ENCOUNTER → 2017-05-05 | Outpatient (CLI) | payer MEDICARE, OTHER ==
--- NOTE | 2017-05-05 12:57 | RADIOLOGY REPORT (SQ) ---
EXAM DESCRIPTION: MRI HEAD WITHOUT COMPLETED DATE/TIME: 05/05/2017 12:46 pm REASON FOR STUDY: SLURRED SPEECH R47.81 SLURRED SPEECH COMPARISON: CT brain 04/28/2017 TECHNIQUE: Multiplanar imaging includes non-contrasted T1, T2, FLAIR, and diffusion with ADC map seq uences. Images stored on PACS. LIMITATIONS: None. FINDINGS: ANATOMY: No developmental anomalies. Normal vascular flow voids. Pituitary fossa normal. CSF SPACES: Normal in size and contour. No hemorrhage. CEREBRUM: Diffusion-weighted images are positive for a small infarct in the right frontal deep perica llosal white matter. This is nonhemorrhagic. No associated T1 weighted signal abnormality. This is an acute or early subacute infarct. Remainder of the cerebrum demonstrates multiple old lacunar infarcts in the deep periventricular whit e matter in the bifrontal and biparietal regions. Multiple lacunar infarcts in the bilateral basal g anglia. No acute intracranial hemorrhage, mass effect, or midline shift. POSTERIOR FOSSA: Old lacunar infarct, right mid danielle. No acute hemorrhage. No edema, masses or mass e ffect. Internal auditory canals, cerebello-pontine angles, mastoids normal. DIFFUSION IMAGING: As above ORBITS: No masses. Globes normal. PARANASAL SINUSES: No fluid levels. Mucosa normal. OTHER: No other significant finding. IMPRESSION: Small acute or early subacute nonhemorrhagic infarct in the deep right posterior frontal periventricular white matter Moderate chronic appearing small vessel disease in the danielle, basal ganglia, and deep periventricular white matter EVIDENCE OF ACUTE STROKE: Yes COMMENT: Pertinent findings on the imaging study reported as a CRITICAL RESULT to FALGUNI PORTILLO MD at12:35 on 05/05/2017. Category of Critical Result: Acute stroke TECHNICAL DOCUMENTATION: JOB ID: [id number] [employer]- All Rights Reserved Reading location - IP/workstation name: [facility]-RR
== END ==
LOC: RAD 12:10
PROVIDERS: ATTEND Family Medicine
DX: I63.9 Cerebral infarction, unspecified (principal)
CPT/HCPCS: 70551

== ENCOUNTER → 2017-05-10 | Outpatient (CLI) | payer MEDICARE, OTHER ==
--- NOTE | 2017-05-10 15:38 | RADIOLOGY REPORT (SQ) ---
EXAM DESCRIPTION: CAROTID DOPPLER COMPLETED DATE/TIME: 05/10/2017 3:10 pm REASON FOR STUDY: CEREBRAL INFARCTION I63.9 CEREBRAL INFARCTION, UNSPECIFIED COMPARISON: MRI brain 05/05/2017 CT brain 04/28/2017 TECHNIQUE: Grayscale ultrasound, Doppler velocity and spectra, and color Doppler images acquired of the extra-cranial carotid and vertebral arteries. Images stored on PACS. LIMITATIONS: None. FINDINGS: RIGHT CAROTID CCA Velocities: Within normal limits. ICA Velocities Peak systolic 87 m/s. End diastolic 28 m/s. Proximal ICA/CCA peak systolic ratio normal. Spectra normal. Mild calcific plaque at the right carotid bifurcation. LEFT CAROTID CCA Velocities: Within normal limits. ICA Velocities Peak systolic 1.5 m/s. End diastolic 0.44 m/s. Proximal ICA/CCA peak systolic ratio normal. Spectra normal. Moderate atherosclerotic calcification at the left carotid bifurcation. Velocities suggest 50 to 69% diameter narrowing. VERTEBRAL ARTERIES: Antegrade flow. Normal waveforms. SUBCLAVIAN ARTERIES: Not evaluated OTHER: No other significant finding. IMPRESSION: No flow significant stenosis at the carotid bifurcations. Less than 50% diameter narrow ing on the right. 50 to 69% diameter narrowing on the left. Antegrade pulsatile flow bilateral vertebral arteries COMMENT: Quality ID #[id number]: Velocity criteria are extrapolated from the diameter data as defined by t he Society of Radiologists in Ultrasound Consensus Conference. Radiology 2003: 229; 340-346. TECHNICAL DOCUMENTATION: JOB ID: [id number] [employer]- All Rights Reserved Reading location - IP/workstation name: [facility] [place]
--- NOTE | 2017-05-10 20:39 | XCELERA REPORT ---
[address] [address] Transthoracic Echocardiogram Report Name: FAITH METZGER Age: 72 yrs Gender: Female : 1945 Patient Status: Outpatient Patient Location: [facility] Study Date: 05/10/2017 12:53 PM Height: 65 in Weight: 157 lb BSA: 1.8 m2 Reason For Study: CEREBRAL INFARCTION Ordering Physician: FALGUNI PORTILLO Performed By: Smooth Piña Interpretation Summary AV calcified, normal configuration without and no AR. Calcified aortic root seen. No cardiogenic emboli Normal MV with no MS and only trace MR, no LA enlargement or LA clot/myxoma. No ASD. Normal to hyperdynamic LV , with no regional wall motion abnormality, no LV diastolic function . Normal R heart with no pulm HTN. MMode/2D Measurements & Calculations RVDd: 3.5 cm LVIDd: 3.9 cm FS: 38.6 % Ao root diam: 2.4 cm IVSd: 0.91 cm LVIDs: 2.4 cm EDV(Teich): 66.7 ml LVPWd: 0.84 cm ESV(Teich): 20.3 ml Ao root area: 4.4 cm2 EF(Teich): 69.5 % Doppler Measurements & Calculations MV E max kashif: MV dec slope: Ao V2 max: LV V1 max P.1 cm/sec 171.2 cm/sec 2.4 mmHg MV A max kashif: 314.3 cm/sec2 Ao max PG: LV V1 max: 79.1 cm/sec MV dec time: 11.7 mmHg 77.7 cm/sec MV E/A: 1.0 0.25 sec PA V2 max: TR max kashif: 82.7 cm/sec 151.9 cm/sec PA max PG: TR max P.2 mmHg 2.7 mmHg Left Ventricle The left ventricle is normal in size, thickness and function. The left ventricle is normal in size. The left ventricular ejection fraction is normal. The Ejection Fraction estimate is 65-70%. Doppler measurements suggest normal left ventricular diastolic function. The left ventricular wall motion is normal. There is no thrombus. Right Ventricle The right ventricle is normal in size, thickness and function. Atria The right atrium is normal. The left atrial size is normal. The interatrial septum is intact with no evidence for an atrial septal defect. Mitral Valve There is mild mitral leaflet calcification. There is mild mitral annular calcification. There is no evidence of mitral valve prolapse. There is no mitral valve stenosis. There is a trace amount of mitral regurgitation. Aortic Valve The aortic valve is sclerotic and shows some degree of functional abnormality. The aortic valve opens well. The aortic valve is trileaflet. There is no aortic valvular vegetation. There is no aortic valve stenosis. No aortic regurgitation is present. Tricuspid Valve The tricuspid is normal in structure and function. There is no tricuspid valve prolapse. There is no tricuspid stenosis. There is a trace or physiologic amount of tricuspid regurgitation. Right ventricular systolic pressure is normal. Great Vessels There is aortic root sclerosis/calcification. Effusions Minimal pericardial effusion. I WMSI = 1.00 % Normal = 100 Segments Size X - Cannot 1 - Normal 2 - 3 - Akinetic4 - 1-2 small Interpret Hypokinetic Dyskinetic 3-5 moderate 5 - 6-14 large Aneurysmal 15-16 diffuse : FALGUNI PORTILLO > Lenny Mckoy
== END ==
LOC: SP 12:50
PROVIDERS: ATTEND Family Medicine
DX: I77.9 Disorder of arteries and arterioles, unspecified (principal); I63.9 Cerebral infarction, unspecified
CPT/HCPCS: 93306; 93880

== ENCOUNTER → 2017-06-05 | Outpatient (CLI) | payer MEDICARE, OTHER ==
--- NOTE | 2017-06-05 14:47 | RADIOLOGY REPORT (SQ) ---
EXAM DESCRIPTION: CTA NECK COMPLETED DATE/TIME: 06/05/2017 2:28 pm REASON FOR STUDY: OCCLUSION AND STENOSIS OF UNSPECIFIED CAROTID ARTERY I65.29 OCCLUSION AND STENOSI S OF UNSPECIFIED CAROTID ARTERY COMPARISON: None. TECHNIQUE: Axial dynamic scanning technique with dynamic contrast enhancement through the extra-crankshaft grinder nial carotid and vertebral arteries. Multiplanar reconstruction. 3-D MIPS and Volume-rendered imag es acquired at the workstation and saved to PACS. Images are reviewed in soft tissue, bone, lung w indows. All CT scanners at this facility use dose modulation, iterative reconstruction, and/or weight based d osing when appropriate to reduce radiation dose to as low as reasonably achievable (ALARA). [facility]: Dose Right [facility]: CareDose [facility]: Dose Right [facility]: Teradose 4D [facility]: Inmoo CONTRAST TYPE AND DOSE: contrast/concentration: Isovue 370.00 mg/ml; Total Contrast Delivered: 80.0 ml; Total Saline Delivered: 75.1 ml RENAL FUNCTION: Creatinine 0.7. LIMITATIONS: Vessel wall calcifications. FINDINGS: AORTIC ARCH: Normal three-vessel origin. Bilateral subclavian arteries are patent. No d issection. RIGHT CAROTIDS: Patent common carotid. Densely calcified plaque origin of the ICA. Approximately 50 % stenosis of the proximal ICA. RIGHT VERTEBRAL: Approximately 75 % stenosis of the origin. No dissection. LEFT CAROTIDS: Patent common carotid. Densely calcified plaque origin of the ICA. Approximately 50% stenosis of the proximal ICA. LEFT VERTEBRAL: Patent. No dissection. OTHER: No other significant finding. OTHER: 3-D reconstructions confirm findings. IMPRESSION: Approximately 50% stenosis of the proximal internal carotid arteries bilaterally. COMMENT: Quality ID #[id number]: Measurements of distal internal carotid diameter were used as the denomina tor for stenosis measurement. TECHNICAL DOCUMENTATION: JOB ID: [id number] Quality ID # [id number]: Final reports with documentation of one or more dose reduction techniques (e.g., Au tomated exposure control, adjustment of the mA and/or kV according to patient size, use of iterative reconstruction technique) 2010 [employer]- All Rights Reserved Reading location - IP/workstation name: [email or web address]
--- NOTE | 2017-06-05 14:48 | RADIOLOGY REPORT (SQ) ---
EXAM DESCRIPTION: CTA HEAD COMPLETED DATE/TIME: 06/05/2017 2:28 pm REASON FOR STUDY: OCCLUSION AND STENOSIS OF UNSPECIFIED CAROTID ARTERY I65.29 OCCLUSION AND STENOSI S OF UNSPECIFIED CAROTID ARTERY COMPARISON: None. TECHNIQUE: Post IV contrast scanning, thin section axial imaging through the brain to evaluate the a rterial structures. Source and MIP images are saved and reviewed on PACS. Advanced 3D imaging as volume-rendering, MIPs, SSD performed? yes All CT scanners at this facility use dose modulation, iterative reconstruction, and/or weight based d osing when appropriate to reduce radiation dose to as low as reasonably achievable (ALARA). [facility]: Dose Right [facility]: CareDose [facility]: Dose Right [facility]: Teradose 4D [facility]: Loccit (ML4D) CONTRAST TYPE AND DOSE: See separate report of the same date. RENAL FUNCTION: See separate report of the same date. LIMITATIONS: None. FINDINGS: MESA GRANDE OF RODRIGUEZ: The anterior, middle, posterior cerebral arteries are all patent. No ev idence of aneurysm or focal stenosis. POSTERIOR CIRCULATION: The distal vertebral arteries are patent as is the basilar artery. No aneurysm . BRAIN: No gross enhancing lesions as visualized. The superior cerebral hemispheres are not included in the field of view. BONES: Intact as visualized. SINUSES: No fluid or mucosal thickening. OTHER: No other significant finding. IMPRESSION: NO CTA EVIDENCE OF STENOSIS OR ANEURYSM OF THE MESA GRANDE OF RODRIGUEZ. TECHNICAL DOCUMENTATION: JOB ID: [id number] Quality ID # [id number]: Final reports with documentation of one or more dose reduction techniques (e.g., Au tomated exposure control, adjustment of the mA and/or kV according to patient size, use of iterative reconstruction technique) 2010 [employer]- All Rights Reserved Reading location - IP/workstation name: [email or web address]
== END ==
LOC: RAD 12:58
PROVIDERS: ATTEND Surgery
DX: I65.23 Occlusion and stenosis of bilateral carotid arteries (principal)
CPT/HCPCS: 70496; 70498; 82565

== ENCOUNTER 2017-08-14 13:42 | Emergency (ER) | payer MEDICARE, OTHER ==
--- NOTE | 2017-08-14 14:41 | ER Document Report ---
ED Extremity Problem, Lower - General Chief Complaint: Ankle Injury Stated Complaint: FALL/ANKLE PAIN Time Seen by Provider: 08/14/17 14:32 Mode of Arrival: Ambulatory Information source: Patient Notes: 72-year-old female patient presenting with chief complaint of left foot pain. Patient reports that she stubbed her toe while walking, tripped and fell. Patient reports pain to the dorsal aspect of her foot. There is mild swelling noted but no ecchymosis. Patient reports that she is able to ambulate on it with no difficulty. TRAVEL OUTSIDE OF THE [place] IN LAST 30 DAYS: No - Related Data Allergies/Adverse Reactions: amoxicillin trihydrate [From Augmentin] Allergy (Severe, Verified 08/14/17 13:44 ) C-DIFF, COLITIS naproxen Allergy (Severe, Verified 08/14/17 13:44) SEVERE DIARRHEA Potassium Clavulanate * [From Augmentin] Allergy (Severe, Verified 08/14/17 13: 44) C-DIFF, DIARRHEA codeine [Codeine] Allergy (Intermediate, Verified 08/14/17 13:44) CP Past Medical History - General Information source: Patient - Social History Smoking Status: Never Smoker Family History: Reviewed & Not Pertinent Patient has suicidal ideation: No Patient has homicidal ideation: No - Past Medical History Cardiac Medical History: Reports: Hx Coronary Artery Disease, Hx Hypercholesterolemia, Hx Hypertension Denies: Hx Atrial Fibrillation, Hx Congestive Heart Failure, Hx Heart Attack , Hx Peripheral Vascular Disease, Hx Pulmonary Embolism, Hx Heart Murmur Pulmonary Medical History: Reports: Hx Asthma - CHILD AND YOUG ADULT, Hx Pneumonia Denies: Hx Bronchitis, Hx COPD, Hx Respiratory Failure, Hx Sleep Apnea, Hx Tuberculosis Neurological Medical History: Denies: Hx Cerebrovascular Accident - HAD CAROTID DOPPLER LESS THAN I YEAR AGO, NEG., Hx Seizures Endocrine Medical History: Reports: Hx Diabetes Mellitus Type 2. Denies: Hx Graves' Disease, Hx Hyperthyroidism, Hx Hypothyroidism Renal/ Medical History: Denies: Hx End Stage Renal Disease, Hx Kidney Stones, Hx Ovarian Cysts, Hx Peritoneal Dialysis, Hx Pelvic Inflammatory Disease Malignancy Medical History: Denies: Hx Breast Cancer, Hx Cervical Cancer, Hx Leukemia, Hx Lung Cancer, Hx Ovarian Cancer GI Medical History: Reports: Hx Gastroesophageal Reflux Disease, Hx Ulcer. Denies: Hx Crohn's Disease, Hx Hiatal Hernia, Hx Irritable Bowel, Hx Liver Failure, Hx Pancreatitis Musculoskeltal Medical History: Denies Hx Arthritis, Denies Hx Fibromyalgia, Denies Hx Multiple Sclerosis, Denies Hx Muscular Dystrophy Psychiatric Medical History: Reports: Hx Depression Denies: Hx Dementia Traumatic Medical History: Denies: Hx Fractures Infectious Medical History: Denies: Hx HIV Past Surgical History: Reports: Hx Abdominal Surgery - benign colon cyst with 4 inch resection, Hx Appendectomy, Hx Cholecystectomy, Hx Hysterectomy, Hx Tonsillectomy, Hx Tubal Ligation. Denies: Hx Bowel Surgery, Hx Section , Hx Colostomy, Hx Coronary Artery Bypass Graft, Hx Gastric Bypass Surgery, Hx Herniorrhaphy, Hx Mastectomy, Hx Pacemaker - Immunizations Hx Diphtheria, Pertussis, Tetanus Vaccination: No Hx Pneumococcal Vaccination: 11/24/11 Review of Systems - Review of Systems Constitutional: No symptoms reported EENT: No symptoms reported Cardiovascular: No symptoms reported Respiratory: No symptoms reported Gastrointestinal: No symptoms reported Genitourinary: No symptoms reported Female Genitourinary: No symptoms reported Musculoskeletal: See HPI Skin: No symptoms reported Hematologic/Lymphatic: No symptoms reported Neurological/Psychological: No symptoms reported Physical Exam - Vital signs Vitals: Temp Pulse Resp BP Pulse Ox 98.1 F 76 18 142/63 H 97 08/14/17 13:47 08/14/17 13:47 08/14/17 13:47 08/14/17 13:47 08/14/17 13:47 - Notes Notes: PHYSICAL EXAMINATION: GENERAL: Well-appearing, well-nourished and in no acute distress. HEAD: Atraumatic, normocephalic. EYES: Pupils equal round and reactive to light, extraocular movements intact, conjunctiva are normal. LUNGS: Breath sounds clear to auscultation bilaterally and equal. No wheezes rales or rhonchi. HEART: Regular rate and rhythm without murmurs Musculoskeletal: Normal range of motion, no pitting or edema. No cyanosis. Swelling noted to left foot, cap refill less than 3 seconds, positive motor and sensation, no ecchymosis. NEUROLOGICAL: Cranial nerves grossly intact. Normal speech, normal gait. Normal sensory, motor exams PSYCH: Normal mood, normal affect. SKIN: Warm, Dry, normal turgor, no rashes or lesions noted. Course - Re-evaluation Re-evalutation: 72-year-old female patient who suffered a mechanical fall after she stubbed her toe. Patient reports pain to the dorsal surface of her left foot. Patient able to bear weight, mild swelling noted but no ecchymosis. Will send patient for left foot x-ray and reevaluate. Radiology reports show nondisplaced fracture of the third metatarsal of the left foot. Patient will be placed in a posterior ankle splint, crutches and be instructed to follow-up with orthopedics. Patient declines need for any pain medications. Patient reports that she takes Tylenol and Motrin at home and does not want anything stronger. - Vital Signs Vital signs: Temp Pulse Resp BP Pulse Ox 98.0 F 69 20 148/69 H 99 08/14/17 16:07 08/14/17 17:05 08/14/17 16:07 08/14/17 17:05 08/14/17 17:05 Procedures - Immobilization left foot Pre-Proc Neuro Vasc Exam: Normal Immobilizer type: Posterior ankle Performed by: Provider Post-Proc Neuro Vasc Exam: Normal Alignment checked and good: Yes Discharge - Discharge Clinical Impression: Ankle injury Qualifiers: Encounter type: initial encounter Laterality: left Qualified Code(s): S99.912A - Unspecified injury of left ankle, initial encounter Metatarsal bone fracture Qualifiers: Encounter type: initial encounter Metatarsal bone: third Fracture type: closed Fracture alignment: nondisplaced Laterality: left Qualified Code(s): S92.335A - Nondisplaced fracture of third metatarsal bone, left foot, initial encounter for closed fracture Condition: Stable Disposition: HOME, SELF-CARE Instructions: Use of Crutches ([facility]) Additional Instructions: Fracture You have a fracture. The typical broken bone requires only protection and sufficient time for healing. "Setting" is necessary only if the bones are crooked or out of position. The physician will re-assess you periodically to make certain that the bone heals without complications. It's important that you follow the instructions given you. The initial treatment is immobilization, elevation of the injury, and cold packs. Not all fractures require a cast. Depending on the location and type of fracture, immobilization may consist of a splint, cast, sling, bulky dressing , or simply rest. The length of time required for healing depends on the location and type of fracture, and on the age of the patient. The treatment plan the physician has outlined for you is customized to your fracture and health condition. Call the doctor or return at once if pain becomes severe, or if severe swelling or numbness develop. Ice & Elevation Apply ice packs frequently against the painful area. Many different schedules are recommended, such as "20 minutes on, 20 minutes off" or "one hour ice, two hours rest." If you need to work, you may need to go longer between ice treatments. You should plan to have the area ice packed AT LEAST one- fourth of the time. The ice should be applied over the wrap, tape, or splint, or over a layer of cloth -- not directly against the skin. Some ice bags have a built-in cloth and can be put directly on the skin. Your injured part should be elevated as much as possible over the next 48 hours. Try to keep the injury above the level of the heart. Avoid use of the injured area. Elevation and rest will decrease the swelling. Ibuprofen Ibuprofen is an excellent, safe drug for pain control. In addition, it has potent antiinflammatory effects which are beneficial, especially in the treatment of injuries, arthritis, or tendonitis. It's best to take ibuprofen with food. Persons with ulcer disease or allergy to aspirin should notify their physician of this before taking ibuprofen. Take the medication exactly as prescribed. Don't take additional doses unless instructed to do so by your doctor. If you develop wheezing, shortness of breath, hives, faintness, stomach pain, vomiting, or dark black stools, return for re-evaluation at once. Please follow-up with orthopedics. Call in the next 2-3 days for an appointment. Follow-up with directions as above. Referrals: SANDRA FULLER MD [ACTIVE STAFF] - Follow up as needed
--- NOTE | 2017-08-14 16:01 | RADIOLOGY REPORT (SQ) ---
EXAM DESCRIPTION: FOOT LEFT COMPLETE COMPLETED DATE/TIME: 08/14/2017 2:55 pm REASON FOR STUDY: fall, left foot pain COMPARISON: None. NUMBER OF VIEWS: Three views. TECHNIQUE: AP, lateral and oblique radiographic images acquired of the left foot. LIMITATIONS: None. FINDINGS: MINERALIZATION: Normal. BONES: Acute nondisplaced transverse fracture, proximal metaphysis left 3rd metatarsal. This is best shown on the oblique view, marked with a port lions. JOINTS: No effusions. SOFT TISSUES: No soft tissue swelling. No foreign body. OTHER: No other significant finding. IMPRESSION: Acute nondisplaced transverse fracture, proximal metaphysis left 3rd metatarsal TECHNICAL DOCUMENTATION: JOB ID: [id number] [employer]- All Rights Reserved Reading location - IP/workstation name: [email or web address]
[2017-08-14 17:07] VITALS: BP 148/69
== END 2017-08-14 17:07 | disposition home or self-care (01) ==
LOC: ER 13:42
DX: S92.335A Nondisplaced fracture of third metatarsal bone, left foot, initial encounter for closed fracture (principal); S99.912A Unspecified injury of left ankle, initial encounter; W18.09XA Striking against other object with subsequent fall, initial encounter; Y93.01 Activity, walking, marching and hiking; I25.10 Atherosclerotic heart disease of native coronary artery without angina pectoris; I10 Essential (primary) hypertension; E11.9 Type 2 diabetes mellitus without complications; Z88.1 Allergy status to other antibiotic agents; Z88.8 Allergy status to other drugs, medicaments and biological substances; Z88.5 Allergy status to narcotic agent
CPT/HCPCS: 99283

== ENCOUNTER → 2017-09-19 | Outpatient (CLI) | payer MEDICARE, OTHER ==
[2017-09-19 11:37] LABS: ANION GAP 14 (5-19); BLOOD UREA NITROGEN 17 mg/dL (7-20); CARBON DIOXIDE 26 mmol/L (22-30); CHLORIDE 104 mmol/L (98-107); GLUCOSE 108 mg/dL (75-110); POTASSIUM 4.2 mmol/L (3.6-5.0); SODIUM 144.1 mmol/L (137-145)
== END ==
LOC: OD 09:49
PROVIDERS: ATTEND Internal Medicine Cardiovascular Disease
DX: I10 Essential (primary) hypertension (principal); Z79.899 Other long term (current) drug therapy
CPT/HCPCS: 36415; 80048

== ENCOUNTER → 2018-01-03 | Outpatient (CLI) | payer MEDICARE, OTHER ==
[2018-01-03 09:42] LABS: ALANINE AMINOTRANSFERASE 27 U/L (9-52); ALBUMIN 4.6 g/dL (3.5-5.0); ALKALINE PHOSPHATASE 59 U/L (38-126); ANION GAP 11 (5-19); ASPARTATE AMINO TRANSFERASE 26 U/L (14-36); BILIRUBIN,DIRECT 0.2 mg/dL (0.0-0.4); BILIRUBIN,TOTAL 0.4 mg/dL (0.2-1.3); BLOOD UREA NITROGEN 24 mg/dL (7-20); CALCIUM 10.3 mg/dL (8.4-10.2); CARBON DIOXIDE 29 mmol/L (22-30); CHLORIDE 103 mmol/L (98-107); GLUCOSE 106 mg/dL (75-110); POTASSIUM 4.5 mmol/L (3.6-5.0); SODIUM 143.1 mmol/L (137-145); TOTAL PROTEIN 7.4 g/dL (6.3-8.2); TRIGLYCERIDES 102 mg/dL (<150)
[2018-01-03 09:53] LABS: DIRECT LDL 84 mg/dL (<100)
== END ==
LOC: OD 08:37
PROVIDERS: ATTEND Internal Medicine Cardiovascular Disease
DX: I10 Essential (primary) hypertension (principal); R00.2 Palpitations; E78.2 Mixed hyperlipidemia; R94.5 Abnormal results of liver function studies
CPT/HCPCS: 36415; 80048; 80061; 80076; 83735; 84443

== ENCOUNTER → 2018-01-30 | Outpatient (CLI) | payer MEDICARE, OTHER ==
[2018-01-30 11:42] LABS: ANION GAP 9 (5-19); BLOOD UREA NITROGEN 15 mg/dL (7-20); CALCIUM 10.2 mg/dL (8.4-10.2); CARBON DIOXIDE 29 mmol/L (22-30); CHLORIDE 103 mmol/L (98-107); GLUCOSE 102 mg/dL (75-110); POTASSIUM 3.9 mmol/L (3.6-5.0); SODIUM 141.4 mmol/L (137-145)
== END ==
LOC: OD 10:25
PROVIDERS: ATTEND Internal Medicine Cardiovascular Disease
DX: I10 Essential (primary) hypertension (principal); E83.52 Hypercalcemia; Z79.899 Other long term (current) drug therapy
CPT/HCPCS: 36415; 80048

== ENCOUNTER → 2018-05-04 | Outpatient (CLI) | payer MEDICARE, OTHER ==
[2018-05-04 11:19] LABS: ANION GAP 11 (5-19); BLOOD UREA NITROGEN 17 mg/dL (7-20); CALCIUM 10.4 mg/dL (8.4-10.2); CARBON DIOXIDE 31 mmol/L (22-30); CHLORIDE 100 mmol/L (98-107); GLUCOSE 94 mg/dL (75-110); POTASSIUM 3.9 mmol/L (3.6-5.0); SODIUM 142.3 mmol/L (137-145)
== END ==
LOC: OD 09:53
PROVIDERS: ATTEND Internal Medicine Cardiovascular Disease
DX: I10 Essential (primary) hypertension (principal); E83.52 Hypercalcemia; R00.2 Palpitations
CPT/HCPCS: 36415; 80048

== ENCOUNTER → 2018-09-10 | Outpatient (CLI) | payer MEDICARE, OTHER ==
[2018-09-10 10:26] LABS: ANION GAP 8 (5-19); BLOOD UREA NITROGEN 19 mg/dL (7-20); CALCIUM 9.9 mg/dL (8.4-10.2); CARBON DIOXIDE 27 mmol/L (22-30); CHLORIDE 105 mmol/L (98-107); GLUCOSE 103 mg/dL (75-110)
== END ==
LOC: OD 09:19
PROVIDERS: ATTEND Physician Assistant
DX: R00.2 Palpitations (principal)
CPT/HCPCS: 36415; 80048; 83735

== ENCOUNTER → 2019-03-15 | Outpatient (CLI) | payer MEDICARE, OTHER ==
[2019-03-15 09:16] LABS: ALBUMIN 4.4 g/dL (3.5-5.0); ALKALINE PHOSPHATASE 78 U/L (38-126); ANION GAP 10 (5-19); ASPARTATE AMINO TRANSFERASE 32 U/L (14-36); BILIRUBIN,DIRECT 0.3 mg/dL (0.0-0.4); BILIRUBIN,TOTAL 0.5 mg/dL (0.2-1.3); BLOOD UREA NITROGEN 14 mg/dL (7-20); CALCIUM 9.9 mg/dL (8.4-10.2); CARBON DIOXIDE 30 mmol/L (22-30); CHLORIDE 102 mmol/L (98-107); CHOLESTEROL 201.81 mg/dL (0-200); GLUCOSE 111 mg/dL (75-110); POTASSIUM 4.3 mmol/L (3.6-5.0); TOTAL PROTEIN 7.2 g/dL (6.3-8.2); TRIGLYCERIDES 153 mg/dL (<150)
[2019-03-15 09:27] LABS: DIRECT LDL 116 mg/dL (<100)
[2019-03-15 09:34] LABS: VLDL CHOLESTEROL 30.6 mg/dL (10-31)
== END ==
LOC: LAB 08:31
PROVIDERS: ATTEND Internal Medicine Cardiovascular Disease
DX: E78.2 Mixed hyperlipidemia (principal); I10 Essential (primary) hypertension; R00.2 Palpitations; Z79.899 Other long term (current) drug therapy
CPT/HCPCS: 36415; 80048; 80061; 80076; 83735

== ENCOUNTER → 2019-05-06 | Outpatient (CLI) | payer MEDICARE, OTHER ==
[2019-05-06 10:58] LABS: ABSOLUTE EOSINOPHILS # (AUTO) 0.2 10^3/uL (0.0-0.6); ABSOLUTE MONOCYTES (AUTO) 0.3 10^3/uL (0.1-1.4); ABSOLUTE NEUT (AUTO) 5.3 10^3/uL (1.7-8.2); BASOPHILS % (AUTO) 0.3 % (0-2); EOSINOPHILS % (AUTO) 2.1 % (0-6); HEMATOCRIT 36.3 % (36.0-47.0); HEMOGLOBIN 12.3 g/dL (12.0-15.5); LYMPHOCYTES % (AUTO) 26.1 % (13-45); MEAN CORPUSCULAR HEMOGLOBIN 30.7 pg (27.0-33.4); MEAN CORPUSCULAR HGB CONC 33.9 g/dL (32.0-36.0); MEAN CORPUSCULAR VOLUME 90 fl (80-97); MONOCYTES % (AUTO) 4.3 % (3-13); PLATELET COUNT 211 10^3/uL (150-450); RED BLOOD COUNT 4.02 10^6/uL (3.72-5.28); RED CELL DISTRIBUTION WIDTH 15.1 % (11.5-14.0); SEGMENTED NEUTROPHILS % (AUTO) 67.2 % (42-78); TOTAL CELLS COUNTED % (AUTO) 100 %; WHITE BLOOD COUNT 7.8 10^3/uL (4.0-10.5)
[2019-05-06 11:28] LABS: ALBUMIN 4.4 g/dL (3.5-5.0); ALKALINE PHOSPHATASE 80 U/L (38-126); ANION GAP 12 (5-19); ASPARTATE AMINO TRANSFERASE 28 U/L (14-36); BILIRUBIN,TOTAL 0.3 mg/dL (0.2-1.3); BLOOD UREA NITROGEN 18 mg/dL (7-20); CALCIUM 9.9 mg/dL (8.4-10.2); CARBON DIOXIDE 29 mmol/L (22-30); CHLORIDE 99 mmol/L (98-107); GLUCOSE 190 mg/dL (75-110); POTASSIUM 3.9 mmol/L (3.6-5.0); TOTAL PROTEIN 7.1 g/dL (6.3-8.2)
--- NOTE | 2019-05-06 11:53 | RADIOLOGY REPORT (SQ) ---
EXAM DESCRIPTION: CHEST PA/LATERAL COMPLETED DATE/TIME: 05/06/2019 10:42 am REASON FOR STUDY: COUGH COMPARISON: 04/28/2017 EXAM PARAMETERS: NUMBER OF VIEWS: two views TECHNIQUE: Digital Frontal and Lateral radiographic views of the chest acquired. RADIATION DOSE: NA LIMITATIONS: none FINDINGS: LUNGS AND PLEURA: No opacities, masses or pneumothorax. No pleural effusion. MEDIASTINUM AND HILAR STRUCTURES: No masses or contour abnormalities. HEART AND VASCULAR STRUCTURES: Heart normal size. No evidence for failure. BONES: No acute findings. HARDWARE: None in the chest. OTHER: No other significant finding. IMPRESSION: NO SIGNIFICANT RADIOGRAPHIC FINDING IN THE CHEST. TECHNICAL DOCUMENTATION: JOB ID: [id number] 2010 [employer]- All Rights Reserved Reading location - IP/workstation name: [email or web address]
== END ==
LOC: OD 10:13
PROVIDERS: ATTEND Physician Assistant
DX: R05 Cough (principal)
CPT/HCPCS: 36415; 71046; 80053; 85025

== ENCOUNTER → 2019-05-23 | Outpatient (CLI) | payer MEDICARE, OTHER ==
[2019-05-23 10:25] LABS: ALBUMIN 4.5 g/dL (3.5-5.0); ALKALINE PHOSPHATASE 73 U/L (38-126); ANION GAP 9 (5-19); ASPARTATE AMINO TRANSFERASE 32 U/L (14-36); BILIRUBIN,TOTAL 0.4 mg/dL (0.2-1.3); BLOOD UREA NITROGEN 18 mg/dL (7-20); CARBON DIOXIDE 28 mmol/L (22-30); CHLORIDE 103 mmol/L (98-107); CHOLESTEROL 187.76 mg/dL (0-200); GLUCOSE 119 mg/dL (75-110); POTASSIUM 3.8 mmol/L (3.6-5.0); TOTAL PROTEIN 7.3 g/dL (6.3-8.2); TRIGLYCERIDES 131 mg/dL (<150)
[2019-05-23 10:35] LABS: DIRECT LDL 106 mg/dL (<100)
== END ==
LOC: OD 08:46
PROVIDERS: ATTEND Physician Assistant
DX: E78.2 Mixed hyperlipidemia (principal); R94.5 Abnormal results of liver function studies; R00.2 Palpitations; Z79.899 Other long term (current) drug therapy
CPT/HCPCS: 36415; 80048; 80061; 80076; 83735

== ENCOUNTER → 2019-08-26 | Outpatient (CLI) | payer MEDICARE, OTHER ==
[2019-08-26 10:41] LABS: ALBUMIN 4.4 g/dL (3.5-5.0); ALKALINE PHOSPHATASE 88 U/L (38-126); ANION GAP 10 (5-19); ASPARTATE AMINO TRANSFERASE 30 U/L (14-36); BILIRUBIN,TOTAL 0.5 mg/dL (0.2-1.3); BLOOD UREA NITROGEN 19 mg/dL (7-20); CALCIUM 10.2 mg/dL (8.4-10.2); CARBON DIOXIDE 30 mmol/L (22-30); CHLORIDE 100 mmol/L (98-107); CHOLESTEROL 174.12 mg/dL (0-200); GLUCOSE 131 mg/dL (75-110); POTASSIUM 4.4 mmol/L (3.6-5.0); TOTAL PROTEIN 7.3 g/dL (6.3-8.2); TRIGLYCERIDES 179 mg/dL (<150)
[2019-08-26 10:52] LABS: DIRECT LDL 91 mg/dL (<100)
[2019-08-26 11:00] LABS: VLDL CHOLESTEROL 35.8 mg/dL (10-31)
== END ==
LOC: OD 09:33
PROVIDERS: ATTEND Internal Medicine Cardiovascular Disease
DX: E78.2 Mixed hyperlipidemia (principal); E83.42 Hypomagnesemia; I10 Essential (primary) hypertension; R00.2 Palpitations; Z79.899 Other long term (current) drug therapy
CPT/HCPCS: 36415; 80048; 80061; 80076; 83735

== ENCOUNTER → 2019-12-09 | Outpatient (CLI) | payer MEDICARE, OTHER ==
[2019-12-09 11:53] LABS: ALBUMIN 4.5 g/dL (3.5-5.0); ALKALINE PHOSPHATASE 99 U/L (38-126); ANION GAP 13 (5-19); ASPARTATE AMINO TRANSFERASE 37 U/L (14-36); BILIRUBIN,DIRECT 0.3 mg/dL (0.0-0.4); BILIRUBIN,TOTAL 0.6 mg/dL (0.2-1.3); BLOOD UREA NITROGEN 20 mg/dL (7-20); CALCIUM 10.1 mg/dL (8.4-10.2); CARBON DIOXIDE 26 mmol/L (22-30); CHLORIDE 100 mmol/L (98-107); CHOLESTEROL 172.64 mg/dL (0-200); GLUCOSE 129 mg/dL (75-110); POTASSIUM 4.4 mmol/L (3.6-5.0); TRIGLYCERIDES 186 mg/dL (<150)
[2019-12-09 12:04] LABS: DIRECT LDL 88 mg/dL (<100)
[2019-12-09 12:08] LABS: VLDL CHOLESTEROL 37.2 mg/dL (10-31)
== END ==
LOC: OD 10:19
PROVIDERS: ATTEND Internal Medicine Cardiovascular Disease
DX: E78.2 Mixed hyperlipidemia (principal); I10 Essential (primary) hypertension; R00.2 Palpitations; E83.42 Hypomagnesemia; R94.5 Abnormal results of liver function studies; Z79.899 Other long term (current) drug therapy
CPT/HCPCS: 36415; 80048; 80061; 80076; 83735

== ENCOUNTER → 2020-03-06 | Outpatient (CLI) | payer MEDICARE, OTHER ==
[2020-03-06 10:58] LABS: ALBUMIN 4.3 g/dL (3.5-5.0); ALKALINE PHOSPHATASE 78 U/L (38-126); ANION GAP 8 (5-19); ASPARTATE AMINO TRANSFERASE 33 U/L (14-36); BILIRUBIN,DIRECT 0.2 mg/dL (0.0-0.4); BILIRUBIN,TOTAL 0.4 mg/dL (0.2-1.3); BLOOD UREA NITROGEN 20 mg/dL (7-20); CALCIUM 9.8 mg/dL (8.4-10.2); CARBON DIOXIDE 32 mmol/L (22-30); CHLORIDE 101 mmol/L (98-107); GLUCOSE 125 mg/dL (75-110); POTASSIUM 3.9 mmol/L (3.6-5.0); TRIGLYCERIDES 126 mg/dL (<150)
[2020-03-06 11:14] LABS: DIRECT LDL 82 mg/dL (<100)
== END ==
LOC: OD 08:50
PROVIDERS: ATTEND Physician Assistant
DX: E78.2 Mixed hyperlipidemia (principal); I10 Essential (primary) hypertension; Z79.899 Other long term (current) drug therapy
CPT/HCPCS: 36415; 80048; 80061; 80076